=== PATIENT | female | born 1995 | race Caucasian/White ===

== ENCOUNTER 2023-10-11 17:17 | Emergency (ER) | payer OTHER, SELFPAY ==
[2023-10-11 17:35] VITALS: BP 120/66; PULSE 68; TEMP 36.7; O2SAT 98; BMI 23.7
--- NOTE | 2023-10-11 17:51 | ED_ITS ---
HPI HPI - General Adult General Chief complaint: Headache Stated complaint: migraine Time Seen by Provider: 10/11/23 17:19 Source: patient Mode of arrival: walk-in Limitations: no limitations History of Present Illness HPI narrative: Patient is a 28-year-old female who presents to the emergency department for 3- day history of migraine. She states she has had similar headaches in the past. She reports pain from the forehead over the face. She has some pain to the back of the head and feels the pain radiate down her back. No peripheral paresthesias although she states she feels shaky. She has had no fevers. No visual changes. She is not concerned for . No falls or injuries. She states the only symptom that is not typical of this headache from previous headaches is that she has been vomiting. She states she took a triptan for pain prior to arrival without improvement and these medications usually make her nauseous. The vomiting is unusual for her. She has a history of ulcerative colitis and has chronic diarrhea. No urinary symptoms, flank pain. Related Data Home Medications ?Medication ?Instructions ?Recorded ?Confirmed escitalopram oxalate 10 mg tablet 10 mg PO .qhs 10/11/23 10/11/23 levonorgestrel-ethinyl estradiol 1 tab PO QDAY 10/11/23 10/11/23 0.1 mg-20 mcg tablet (Falmina (28)) naratriptan 2.5 mg tablet See Rx Instructions PO .COMPLEX 10/11/23 10/11/23 pseudoephedrine HCl 30 mg tablet 30 mg PO Q6H 10/11/23 10/11/23 (Nasal Decongestant (pseudoephedrine)) Previous Rx's ?Medication ?Instructions ?Recorded ketorolac 10 mg tablet 10 mg PO TID PRN pain #10 tabs 10/11/23 methocarbamol 750 mg tablet 750 mg PO TID PRN pain #20 tabs 10/11/23 ondansetron 4 mg disintegrating 4 mg PO Q6H PRN nausea and 10/11/23 tablet vomiting #12 tabs Allergies Allergy/AdvReac Type Severity Reaction Status Date / Time No Known Drug Allergies Allergy Verified 10/11/23 17:35 Opioid HPI Opioid Management Most Recent Opioid Data: Last Pain Scale 7 10/11/23 18:16 Last MAR Pain Assessment 10/11/23 18:16 Review of Systems ROS Constitutional Denies: fever or chills Eyes Denies: change in vision Ears, nose, mouth, and throat Denies: throat pain or nasal congestion Cardiovascular Denies: chest pain Respiratory Denies: shortness of breath or cough Gastrointestinal Reports: nausea, vomiting and diarrhea Musculoskeletal Denies: back pain, neck pain, extremity pain or extremity swelling Integumentary/Breast Denies: rash Neurological Reports: headache; Denies: numbness in extremities or weakness in extremities Hematologic/Lymphatic Denies: easy bruising or easy bleeding Exam Narrative Exam Narrative: Gen.: Awake, alert, in no distress Head: Normocephalic, atraumatic ENT: Moist mucous membranes, No nuchal rigidity or meningismus, bilateral TMs are clear, pharynx is normal with no tonsillar edema. Airway widely open and patent. Respiratory: No respiratory distress, lungs clear bilaterally Cardio: Regular rate and rhythm Extremities: Moves extremities equally Psych: Normal mood and affect Neuro: No focal neuro deficit Skin: Warm, dry, intact Constitutional Vital Signs, click to edit/add: Last Vital Signs Temp 98.1 F 10/11/23 17:35 Pulse 68 10/11/23 17:35 Resp 12 10/11/23 17:35 BP 120/66 10/11/23 17:35 Pulse Ox 98 10/11/23 17:35 O2 Del Method Room Air 10/11/23 17:35 Course Vital Signs Vital signs: Vital Signs Temperature 98.1 F 10/11/23 17:35 Pulse Rate 68 10/11/23 17:35 Respiratory Rate 12 10/11/23 17:35 Blood Pressure 120/66 10/11/23 17:35 Pulse Oximetry 98 10/11/23 17:35 Oxygen Delivery Method Room Air 10/11/23 17:35 Temperature 98.1 F 10/11/23 17:35 Pulse Rate 68 10/11/23 17:35 Respiratory Rate 12 10/11/23 17:35 Blood Pressure 120/66 10/11/23 17:35 Pulse Oximetry 98 10/11/23 17:35 Oxygen Delivery Method Room Air 10/11/23 17:35 Medical Decision Making MDM Narrative Medical decision making narrative: Patient was medicated with IV fluids, Toradol, Reglan, Benadryl, Norflex. She had no episodes of emesis in the emergency department. Her vital signs are stable. She has a benign neuro exam and stable lab studies. She was noted to have mild hypokalemia and was treated with oral potassium in the ER. She is discharged home with prescriptions for Toradol, Zofran, Robaxin. Follow-up with PCP and return to the emergency department if symptoms change or worsen. Reevaluated by attending physician prior to discharge Medical Records Medical records reviewed: Yes I reviewed the patient's medical records Lab Data Lab results reviewed: Yes I reviewed the patient's lab results Labs: Lab Results 10/11/23 Range/Units 18:05 WBC 9.3 (4.0-11.0) 10^3/uL RBC 4.22 (4.20-5.40) 10^6/uL Hgb 12.5 (12.0-16.0) g/dL Hct 37.6 (36.0-48.0) % MCV 89.1 (81.0-99.0) fL MCH 29.6 (26.7-34.0) pg MCHC 33.2 (29.9-35.2) g/dL RDW 12.0 (11.0-15.0) % Plt Count 232 (150-450) 10^3/uL MPV 9.6 (9.5-13.5) fL Neut % (Auto) 70.1 (43.0-75.0) % Lymph % (Auto) 17.3 L (20.5-60.0) % [place] % (Auto) 9.5 (1.7-12.0) % Eos % (Auto) 2.0 (0.9-7.0) % Baso % (Auto) 0.9 (0.2-2.0) % Neut # (Auto) 6.5 (1.4-6.5) 10^3/uL Lymph # (Auto) 1.6 (1.2-3.8) 10^3/uL [place] # (Auto) 0.9 H (0.3-0.8) 10^3/uL Eos # (Auto) 0.2 (0.0-0.7) 10^3/uL Baso # (Auto) 0.1 (0.0-0.1) 10^3/uL Abs Immat Gran (auto) 0.02 (0.00-0.03) 10^3/uL Imm/Tot Granulo (auto) 0.2 (0.0-0.5) % Sodium 140 (136-145) mmol/L Potassium 3.3 L (3.5-5.1) mmol/L Chloride 104 (98-107) mmol/L Carbon Dioxide 26.5 (21.0-32.0) mmol/L Anion Gap 12.8 BUN 10.0 (7.0-18.0) mg/dL Creatinine 0.65 (0.55-1.02) mg/dL Est GFR ( Amer) >60 (>=60) Est GFR (Non-Af Amer) >60 (>=60) BUN/Creatinine Ratio 15.4 Glucose 98 (74-106) mg/dL Calcium 9.3 (8.5-10.1) mg/dL Discharge Plan Discharge Stand Alone Forms: Portal Instructions Chief Complaint: Headache Clinical Impression: Headache, Hypokalemia Patient Disposition: Home, Self-Care Time of Disposition Decision: 19:23 Condition: Good Prescriptions / Home Meds: New ketorolac 10 mg tablet 10 mg PO TID PRN (Reason: pain) Qty: 10 0RF methocarbamol 750 mg tablet 750 mg PO TID PRN (Reason: pain) Qty: 20 0RF ondansetron 4 mg tablet,disintegrating 4 mg PO Q6H PRN (Reason: nausea and vomiting) Qty: 12 0RF No Action levonorgestrel-ethinyl estrad [Falmina (28)] 0.1-20 mg-mcg tablet 1 tab PO QDAY escitalopram oxalate 10 mg tablet 10 mg PO .qhs naratriptan 2.5 mg tablet See Rx Instructions .ROUTE .COMPLEX Rx Instructions: take 1 tab at onset of headache; if no relief may repeat 1 tab after at least 4 hrs; max = 2 tabs/24 hrs pseudoephedrine HCl [Nasal Decongestant (pseudoeph)] 30 mg tablet 30 mg PO Q6H Print Language: Italian Instructions: Acute Headache (ED) Referrals: Physician,Non-Staff, MD [Primary Care Provider] - 1 week
[2023-10-11] MEDS: 0.9 % SODIUM CHLORIDE 1,000 ML 999 ML IV (18:11)
[2023-10-11] MEDS: DIPHENHYDRAMINE HCL 50 MG/ML (1ML) VIAL 25 MG IV (18:14)
[2023-10-11] MEDS: KETOROLAC TROMETHAMINE 30 MG/ML VIAL IVP (18:16)
[2023-10-11] MEDS: ORPHENADRINE 60 MG/ 2 ML VIAL IV (18:18)
[2023-10-11] MEDS: METOCLOPRAMIDE HCL 10 MG/2 ML VIAL IVP (18:18)
[2023-10-11 18:42] LABS: Basophils Absolute Auto 0.1 10^3/uL (0.0-0.1); Basophils Percent Auto 0.9 % (0.2-2.0); Eosinophils Absolute Auto 0.2 10^3/uL (0.0-0.7); Hematocrit 37.6 % (36.0-48.0); Hemoglobin 12.5 g/dL (12.0-16.0); Immature Granulocytes Abs Auto 0.02 10^3/uL (0.00-0.03); Immature Granulocytes Pct Auto 0.2 % (0.0-0.5); Lymphocytes Absolute Auto 1.6 10^3/uL (1.2-3.8); Lymphocytes Percent Auto 17.3 % (20.5-60.0); Mean Corpuscular HGB Conc 33.2 g/dL (29.9-35.2); Mean Corpuscular Hemoglobin 29.6 pg (26.7-34.0); Mean Corpuscular Volume 89.1 fL (81.0-99.0); Mean Platelet Volume 9.6 fL (9.5-13.5); Monocytes Absolute Auto 0.9 10^3/uL (0.3-0.8); Monocytes Percent Auto 9.5 % (1.7-12.0); Neutrophils Absolute Auto 6.5 10^3/uL (1.4-6.5); Neutrophils Percent Auto 70.1 % (43.0-75.0); Platelet Count 232 10^3/uL (150-450); Red Blood Count 4.22 10^6/uL (4.20-5.40); White Blood Count 9.3 10^3/uL (4.0-11.0)
[2023-10-11 18:51] LABS: Anion Gap 12.8; BUN Creatinine Ratio 15.4; Calcium 9.3 mg/dL (8.5-10.1); Carbon Dioxide 26.5 mmol/L (21.0-32.0); Chloride 104 mmol/L (98-107); Estimated GFR (African America >60 (>=60); Estimated GFR (Non-African Ame >60 (>=60); Glucose 98 mg/dL (74-106); Potassium 3.3 mmol/L (3.5-5.1); Sodium 140 mmol/L (136-145)
[2023-10-11] MEDS: POTASSIUM CHLORIDE 10 MEQ ER TABLET 40 MEQ PO (19:33)
[2023-10-11 19:41] VITALS: BP 105/73; PULSE 62; O2SAT 100
== END 2023-10-11 19:44 | disposition home or self-care (01) ==
PROVIDERS: Physician Assistant; Emergency Provider Emergency Medicine
DX: R51.9 Headache, unspecified (principal); E87.6 Hypokalemia
CPT/HCPCS: 36415; 80048; 85025; 96374; 96375; 99284

== ENCOUNTER 2025-03-16 10:11 | Outpatient (OUT) | payer OTHER, SELFPAY ==
--- OUTSIDE RECORDS SUMMARY | 2025-03-16 08:30 | XMS_ITS | Encounter Summary ---
Author Organization [facility] Address [address] [place] [address] Care Team Providers Care Funnel Setter Name Role Phone Addie Matute DO Primary Care Provider [phone] Encounter Details Date Type Department Care Team (Latest Contact Info) Description 03/16/2025 8:30 AM EDT Ancillary Procedure [facility] [address] [place] [address] Missed menses; Positive urine test ([facility]) Social History Tobacco Use Types Packs/Day Years Used Date Smoking Tobacco: Never Alcohol Use Standard Drinks/Week Comments Yes 6 (1 standard drink = 0.6 oz pur e alcohol) Estimated Date of Delivery Comme nts Yes 09/15/2025 Based on Ultraso und Sex and Gender Information Value Date Recorded Sex Assigned at Not on file Legal Sex Female 9:55 PM EDT Gender Identity Not on file Sexual Orientation Not on file documented as of this encounter Plan of Treatment Upcoming Encounters Date Type Department Care Team (Late st Contact Info) Description 04/10/2025 1:40 PM EST Routine [facility] [address] [place] [address] Pablo Hall DO [address] [place], [place] [id number] Pending Results Name Type Priority Associated Diagnoses Date /Time US OB transvaginal Imaging Routine Missed menses Positive urine test ([facility]) 03/16/2025 9:00 AM EDT documented as of this encounter Visit Diagnoses Diagnosis Missed menses Positive urine test ([facility]) documented in this encounter Care Teams Funnel Setter Relationship Specialty Start Date End Date Addie Matute DO [address] [place] [address] PCP - General Family Medicine 03/16/25 documented as of this encounter
--- OUTSIDE RECORDS SUMMARY | 2025-03-16 09:00 | XMS_ITS | Encounter Summary ---
Author Organization [facility] Address [address] [place] [address] Care Team Providers Care Notary Public Name Role Phone Addie Matute DO Primary Care Provider [phone] Reason for Visit * Reason Comments Amenorrhea Encounter Details Date Type Department Care Team (Late st Contact Info) Description 03/16/2025 9:00 AM EDT Initial [facility] [address] [place] [address] [place] [id number] GA: 13w6d Social History Tobacco Use Types Packs/Day Years [...] on file documented as of this encounter Last Filed Vital Signs Vital Sign Reading Time Taken Comments Blood Pressure 122/70 03/16/2025 9:57 AM EDT Pulse - - Temperature - - Respiratory Rate - - Oxygen Saturation - - Inhaled Oxygen Concentration - - Weight 76.3 kg (168 lb 1.9 oz) 03/16/2025 9:57 A M EDT Height - - Body Mass Index 22.33 05/02/2019 12:00 PM EST documented in this encounter Progress Notes * Danya Alex - 03/16/2025 9:00 AM EDT Reason for Appointment: Patient ID: Joslyn Witt is a 29 y.o. female who presents for Amenorrhea Patient presents today for a Nurse OB Intake appointment. Patient is 13w6d with a Estimated Date ofDelivery: 09/15/25 OB History Para Term AB Living 1 SAB IAB Ectopic Multiple Live Births # Outcome Date GA Lbr Jose/2nd Weight Sex Type Anes PTL Lv 1 Current Current Medications: currently has no medications in their medication list. Medical History: Active Ambulatory Problems Diagnosis Date Noted No Active Ambulatory Problems Resolved Ambulatory Problems Diagnosis Date Noted No Resolved Ambulatory Problems Past Medical History: Diagnosis Date Ulcerative colitis (HCC) Family History Problem Relation Name Age of Onset No Known Problems Brother 2 brothers Social History Tobacco Use Smoking status: Never Smokeless tobacco: Not on file Substance Use Topics Alcohol use: Yes Alcohol/week: 6.0 standard drinks of alcohol Types: 6 Standard drinks or equivalent per week Drug use: Not on file Past Surgical History: Procedure Laterality Date COLONOSCOPY No Known Allergies Vitals: Estimated body mass index is 22.33 kg/m?? as calculated from the following: Height as of 05/02/19: 6' 0.75 . Weight as of this encounter: 168 lb 1.9 oz. BP: 122/70 Patient's last menstrual period was 01/07/2025. Assessment/Plan Diagnoses and all orders for this visit: Missed menses - US OB transvaginal; Future - Type and screen; Future - ABO/Rh; Future - CBC and differential - Hemoglobin A1c - RPR - Rubella antibody, IgG - Hepatitis B surface antigen - Hepatitis C antibody - HIV-1 and HIV-2 antibodies - Urine culture - POCT urinalysis dipstick manually resulted - POCT , urine manually resulted Positive urine test ([facility]) - US OB transvaginal; Future , unspecified gestational age ([facility]) - Type and screen; Future - ABO/Rh; Future - CBC and differential - Hemoglobin A1c - RPR - Rubella antibody, IgG - Hepatitis B surface antigen - Hepatitis C antibody - HIV-1 and HIV-2 antibodies - Rapid drug screen, urine; Future Encounter for supervision of normal first in first trimester ([facility]) - Rapid drug screen, urine; Future Nurse Note: OB Intake: Patient presents today for first OB visit. Patients history has been reviewed in great detail including any potential risks. Patient signed consent forms and patient desires testing in both trimesters. Patient currently has no complaints and has been advised to drink 6-8 glasses of water a day, eatno raw or undercooked meat, and stay away from [facility]. Patient has also been advised to not change litter boxes and eat 6 small meals a day. Patient has been consulted regarding the do's and don'ts ofpregnancy. Patient was given labs and all questions and concerns were answered. Follow Up: Patient is to return in 4 weeks for routine OB appointment. Follow Up: Patient is to have labs drawn at directed and return to office for initial OB appointment with provider. Patient may call office as needed with any concerns or questions. Nurse Visit Completed by: Danya Alex documented in this encounter Plan of Treatment Upcoming Encounters Date Type Department Care Team (Late st Contact Info) Description 04/10/2025 1:40 PM EST Routine [facility] [address] [facility] [place] [address] [place], [address] [facility] [place] [address] Pending Results Name Type Priority Associated Diagnoses Date /Time OB transvaginal Imaging Routine Missed menses Positive urine test ([facility]) 03/16/2025 9:00 AM EDT Scheduled Orders Name Type Priority Associated Diagnoses Orde r Schedule OB transvaginal Imaging Routine Missed menses Positive urine test ([facility]) Expected: 03/06/2025, Expires: 06/06/2025 Type and screen Lab Routine Missed menses , unspecified gestational age ([facility]) Expected: 03/16/2025 (Approximate), Expires: 03/16/2026 ABO/Rh Lab Routine Missed menses , unspecified gestational age ([facility]) Expected: 03/16/2025 (Approximate), Expires: 03/16/2026 CBC and differential Lab Routine Missed menses , unspecified gestational age ([facility]) Ordered: 03/16/2025 Hemoglobin A1c Lab Routine Missed menses , unspecified gestational age ([facility]) Ordered: 03/16/2025 RPR Lab Routine Missed menses , unspecified gestational age ([facility]) Ordered: 03/16/2025 Rubella antibody, IgG Lab Routine Missed menses , unspecified gestational age ([facility]) Ordered: 03/16/2025 Hepatitis B surface antigen Lab Routine Missed menses , unspecified gestational age ([facility]) Ordered: 03/16/2025 Hepatitis C antibody Lab Routine Missed menses , unspecified gestational age ([facility]) Ordered: 03/16/2025 HIV-1 and HIV-2 antibodies Lab Routine Missed menses , unspecified gestational age ([facility]) Ordered: 03/16/2025 Urine culture Microbiology Routine Missed menses Ordered: 03/16/2025 Rapid drug screen, urine Lab Routine , unspecified gestational age ([facility]) Encounter for supervision of normal first in first trimester ([facility]) Expected: 03/16/2025 (Approximate), Expires: 03/16/2026 documented as of this encounter Procedures Procedure Name Priority Date/Time Associated Diagnosis Comments POCT , URINE Routine 03/16/2025 10:02 AM EDT Missed menses POCT URINALYSIS DIPSTICK Routine 03/16/2025 10:02 AM EDT Missed menses documented in this encounter Results * (ABNORMAL) POCT , urine manually resulted (03/16/2025 10:02 AM EDT) Preg Test, Ur Positive Negative Urine 03/16/2025 10:0 2 AM EDT us Pablo Isabel DO POINT OF CARE TEST ENTER/EDIT OR DERABLES Final Result * (ABNORMAL) POCT urinalysis dipstick manually resulted (03/16/2025 10:02 AM EDT) Color, UA Yellow Clarity, UA Clear Glucose, UA Negative Negative - 2000(110) ++++ mg/dL Bilirubin, UA Negative Negative - 4(70) +++ mg/dL Ketones, UA Negative Negative - 160(16) ++++ mg/dL Spec Grav, UA 1.000 1 - 1.03 Blood, UA Negative Negative - 50 Gary/mcL pH, UA 6.5 5 - 9 Protein, UA Negative Negative - 2000(20) ++++ mg/dL Urobilinogen, UA 2.0 0.2 - 12 mg/dL Leukocytes, UA Trace Negative - 500+++ Abundio/mcL Nitrite, UA Negative Negative - Positive Urine 03/16/2025 10:0 2 AM EDT Pablo Hall DO POINT OF CARE TEST ENTER/EDIT OR DERABLES Final Result documented in this encounter Visit Diagnoses Diagnosis Missed menses Positive urine test ([facility]) , unspecified gestational age ([facility]) Encounter for supervision of normal first in first trimester ([facility]) documented in this encounter Care Teams Notary Public Relationship Specialty Start Date End Date Addie Matute DO [address] [facility] [place] [phone] PCP - General Family Medicine 03/16/25 documented as of this encounter
--- OUTSIDE RECORDS SUMMARY | 2025-03-16 10:17 | XMS_ITS | Clinical Summary ---
Author Organization [facility] Address [address] [place] [address] Phone Care Team Providers Care Motor Equipment Sergeant Name Role Phone Unavailable Primary Care Provider Unavailabl e Social History Tobacco Use Types Packs/Day Years Used Date Smoking Tobacco: Never Assessed Comments Unknown Sex and Gender Information Value Date Recorded Sex Assigned at Not on file Legal Sex Female 6:01 PM EST Gender Identity Not on file Sexual Orientation Not on file Plan of Treatment Not on file
--- OUTSIDE RECORDS SUMMARY | 2025-03-16 10:17 | XMS_ITS | Clinical Summary ---
Author Organization [facility] Address [address] [place], [place] [id number] Care Team Providers Care Pipe Processor Name Role Phone Tae Wilkins APRN.[employer] Primary Care Provider Allergies No known active allergies Medications adalimumab 40 mg/0.4 mL subcutaneous pen kit (HUMIRA(CF) PEN) Inject 40 mg subcutaneously every 2 weeks. 08/13/19 19 Active folic acid 1 mg tablet Take 1 mg by mouth. Active methotrexate 2.5 mg tablet Take 5 mg by mouth once each week. 08/14/19 16 Active etonogestrel (NEXPLANON) subdermal implant 68 mg 68 mg by SUBDERMAL route. Active mupirocin (BACTROBAN) 2 % ointmentIndicati ons:History of MRSA infection,Pain in left axilla,Celluliti s of left axilla Apply 1 application to affected area twice daily. 30 g 02/07/20 19 Active sulfamethoxazole -trimethoprim (BACTRIM DS,SEPTRA DS) 800-160 mg per tabletIndication s:History of MRSA infection,Pain in left axilla,Celluliti s of left axilla Take 1 tablet by mouth twice daily. 10 tablet 06/02/19 20 Active escitalopram oxalate (LEXAPRO) 10 mg tabletIndication s:Anxiety with depression TAKE 1 TABLET BY MOUTH EVERY DAY 90 tablet 03/19/20 20 Active Active Problems Problem Noted Date Diagnosed Date Anxiety with depression 08/02/2019 Irritable bowel syndrome (IBS) 12/24/2017 Ulcerative colitis 09/02/2016 Inflammatory arthritis 01/14/2014 Benign neoplasm of skin of trunk, except scrotum 08/19/2011 Acne 12/25/2010 Seborrheic dermatitis 12/25/2010 Immunizations Immunization Administration Dates Next Due Haemophilus influenzae b-hep atitis B (Hib-HepB) vaccine (COMVAX) 09/03/1998,1997,1997 diphtheria tetanus pertussis (DTaP) vaccine, pediatric (INFANRIX) 08/29/2001,12/02/1998,02/27/1998,12/24,1997 diphtheria tetanus pertussis (DTaP) vaccine, unspecified formulation 08/29/2001,12/02/1998,02/27/1998,12/24,1997 human papillomavirus (HPV4) vaccine, quadrivalent (GARDASIL) 08/12/2010,01/29/2010,11/27/2009 influenza (IIV4) vaccine, ag e 6 mo - 64 yr, quadrivalent (AFLURIA, FLULAVAL, FLUZONE) 06/04/2017 influenza (IIV4) vaccine, ag e 6 mo - 64 yr, quadrivalent, PF (AFLURIA, FLUARIX, FLULAVAL, FLUZONE) 04/08/2015 influenza (ccIIV4) vaccine, age 6+ mo, quadrivalent, PF (FLUCELVAX) 03/08/2018 measles mumps rubella (MMR) vaccine (M-M-R II, PRIORIX) 08/29/2001,09/03/1998 meningococcal (MenACWY-CRM) vaccine, quadrivalent (MENVEO) 01/23/2016 meningococcal (MenACWY-D) va ccine, quadrivalent (MENACTRA) 01/23/2016,11/27/2009 novel influenza (T7W7-21) va ccine, live, nasal 04/04/2009 poliovirus (IPV) vaccine, in activated (IPOL) 08/29/2001,1997,1997 poliovirus (OPV) vaccine, tr ivalent, live, oral (ORIMUNE) 09/03/1998 tetanus diphtheria pertussis (Tdap) vaccine, age 7+ yr (ADACEL, BOOSTRIX) 02/06/2019,11/27/2009 varicella (NATALIYA) vaccine (VARIVAX) 09/14/2006,09/1998 Family History Medical History Relation Comments Blood Clots Mother Relation Status Comments Mother Social History Tobacco Use Types Packs/Day Years Used Date Smoking Tobacco: Never Smokeless Tobacco: Never Alcohol Use Standard Drinks/Week Comments Yes 0 (1 standard drink = 0.6 oz pur e alcohol) PHQ-2 Answer Date Recorded Score (Questions 1 & 2) 0 02/07/20 19 Area Deprivation Index Answer Date Arnaldo rded National Score (1-100), lower number is lower ri sk Not on file 05/08/2020 State Score (1-10), lower number is lower risk N ot on file 05/08/2020 Data from: https://www.neighborhoodatlas.[facility]/. Last address used for calculation Not on file 05/08/2020 Comments No Sex and Gender Information Value Date Recorded Sex Assigned at Not on file Legal Sex Female 6:17 PM EDT Gender Identity Not on file Sexual Orientation Not on file Last Filed Vital Signs Vital Sign Reading Time Taken Comments Blood Pressure 118/78 06/05/2019 1:03 PM EST Pulse 78 06/05/2019 1:03 PM EST Temperature 37.2 C (98.9 F) 05/05/2019 12:01 PM EST Respiratory Rate 17 02/06/2019 11:14 AM EDT Oxygen Saturation 98% 06/05/2019 1:03 PM EST Inhaled Oxygen Concentration - - Weight 70.3 kg (155 lb) 06/05/2019 1:03 PM EST Height 182.9 cm (6') 06/05/2019 1:03 PM EST Body Mass Index 21.02 06/05/2019 1:03 PM EST Plan of Treatment Health Maintenance Due Date Last Done Comments Anxiety Screening 08/28/2015 Depression Screening 08/28/2015 HIV Screening 08/28/2015 Hepatitis C Screening 08/28/2015 Cervical Cancer Screening 2018 Covid-19 Vaccine (2024-2 6 season) 2025 Influenza Vaccine (#1) 2025 8, 06/04/2017, 04/08/2015, Additional history exists DTaP,Tdap,Td Vaccine (8 - Td or Tdap) 02/06/2029 02/06/2019, 11/27/2009, 08/29/2001, Additional history exists Hepatitis B Vaccine Completed 09/03/1998, 1997, 1997 HPV Vaccine Completed 08/12/2010, 05/2009, 11/27/2009 Insurance BLUE CARD PPO OOS Care Teams Pipe Processor Relationship Specialty Start Date End Date Tae Wilkins, GOLF COURSE MANAGER.[employer] PCP - General Family Medicine 05/09/19
--- OUTSIDE RECORDS SUMMARY | 2025-03-16 10:18 | XMS_ITS | Encounter Summary ---
Author Organization [facility] Address [address] [place] [address] Care Team Providers Care Dialysis Biomed Technician Name Role Phone Unavailable Primary Care Provider Unavailabl e Encounter Details Date Type Department Care Team (Latest Contact Info) Description 03/15/2025 Travel Social History Tobacco Use Types Packs/Day Years Used Date Smoking Tobacco: Never Alcohol Use Standard Drinks/Week Comments Yes 6 (1 standard drink = 0.6 oz pur e alcohol) Comments Unknown Sex and Gender Information Value Date Recorded Sex Assigned at Not on file Legal Sex Female 9:55 PM EDT Gender Identity Not on file Sexual Orientation Not on file documented as of this encounter Plan of Treatment Upcoming Encounters Date Type Department Care Team (Late st Contact Info) Description 04/10/2025 1:40 PM EST Routine [facility] [address] [place] [id number] Pablo Hall DO [address] [facility] [place] [address] documented as of this encounter Visit Diagnoses Not on filedocumented in this encounter
--- OUTSIDE RECORDS SUMMARY | 2025-03-16 10:18 | XMS_ITS | Encounter Summary ---
Author Organization [facility] Address [address] [place] [address] Care Team Providers Care Forensic Psychologist Name Role Phone Addie Matute DO Primary Care Provider Encounter Details Date Type Department Care Team (Late st Contact Info) Description 03/16/20[address] [place] [address] Pablo Hall DO [address], [place] [address] Social History Tobacco Use Types Packs/Day Years [...] 04/10/2025 1:40 PM EST Routine [facility] [place] [address] Pablo Hall DO [address], [facility] documented as of this encounter Visit Diagnoses Not on filedocumented in this encounter Care Teams Forensic Psychologist Relationship Specialty Start Date End Date Addie Matute DO [address] [place] [address] PCP - General Family Medicine 03/16/25 documented as of this encounter
--- OUTSIDE RECORDS SUMMARY | 2025-03-16 10:18 | XMS_ITS | CCD ---
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 Known Allergies Current Outpatient Medications Medication Sig - cephALEXin (KEFLEX) 500 mg capsule Take 2 capsules by mouth twice daily for 5 days. - sulfamethoxazole-trim ethoprim (BACTRIM DS,SEPTRA DS) 800-160 mg per tablet Take 1 tablet by mouth twice daily. - escitalopram oxalate (LEXAPRO) 10 mg tablet TAKE 1 TABLET BY MOUTH EVERY DAY - etonogestrel (NEXPLANON) subdermal implant 68 mg 68 mg by SUBDERMAL route. - mupirocin (BACTROBAN) 2 % ointment Apply 1 application to affected area twice daily. - adalimumab 40 mg/0.4 mL subcutaneous pen kit (HUMIRA(CF) PEN) Inject 40 mg subcutaneously every 2 weeks. - folic acid 1 mg tablet Take 1 mg by mouth. - methotrexate 2.5 mg tablet Take 5 mg by mouth once each week. No current facility-administered medications for this visit. Review of Systems Review of Systems Constitutional: Positive for fatigue. Negative for chills, diaphoresis and fever. HENT: Negative for congestion, sinus pressure, sinus pain, sore throat and trouble swallowing. Respiratory: Negative for cough, chest tightness, shortness of breath and wheezing. Cardiovascular: Negative for chest pain and palpitations. Gastrointestinal: Negative for abdominal pain, diarrhea, nausea and vomiting. Genitourinary: Negative for flank pain. Musculoskeletal: Negative for arthralgias and myalgias. Neurological: Negative for dizziness, tremors, seizures, syncope, facial asymmetry, speech difficulty, weakness, light-headedness, numbness and headaches. Psychiatric/Behaviora l: Negative for confusion and suicidal ideas. The patient is nervous/anxious. Physical Exam BP 118/78 Pulse 78 Ht 6' 0 (1.83m) Wt 155 lb (70.3kg) SpO2 98% BMI 21.02 kg/(m2). Physical Exam Constitutional: Appearance: Normal appearance. She is well-developed. Cardiovascular: Rate and Rhythm: Normal rate and regular rhythm. Pulses: Normal pulses. Heart sounds: Normal heart sounds. Pulmonary: Effort: Pulmonary effort is normal. Breath sounds: Normal breath sounds. Skin: General: Skin is warm and dry. Capillary Refill: Capillary refill takes less than 2 seconds. Neurological: Mental Status: She is alert and oriented to person, place, and time. Psychiatric: Attention and Perception: Attention and perception normal. Speech: Speech normal. Behavior: Behavior normal. Behavior is cooperative. Thought Content: Thought content normal. Cognition and Memory: Cognition and memory normal. Judgment: Judgment normal. ASSESSMENT/PLAN: 1. Anxiety with depression - ICD9: 300.4, ICD10: F41.8 - We will increase her Lexapro from 10mg to 15mg daily - Pt also interested in seeing psychiatry - Will contact me in two weeks via [employer] and update on how she is tolerating medications. At this time we may switch medications or adjust dosaging - CONSULT TO PSYCHIATRY Kristy Hood APRN.CNP No follow-ups on file. Discussed above plan with patient and/or caregiver. Patient and/or caregiver agreeable with above plan. Signed on June 05, 2019 1:09 PM Kristy Hood APRN.CNP, CNP 06/05/2019 2:50 PM Signed Addended by: KRISTY HOOD CNP on: 06/05/2019 02:50 PM Modules accepted: Orders Referring Provider: KRISTY HOOD (BUNKER WORKER.[facility]) [[id number]] Allergies As of Date: 06/05/2019 (No Known Allergies) Date Reviewed: 05/05/2019 Reviewed by: Moon Bonilla - Fully Assessed Reason for Visit: One Mouth Follow Up Anxiety [Other] Visit Diagnosis:Anxiety with depression [F41.8] Order(s):CONSULT TO PSYCHIATRY [9067] Order #: [id number]: 1 FUTURE Prescriptions as of 06/05/2019 Sig: CEPHALEXIN 500 MG CAPSULE Take 2 capsules by mouth twic* SULFAMETHOXAZOLE 800 MG-TRIME* Take 1 tablet by mouth twice * ETONOGESTREL 68 MG SUBDERMAL * 68 mg by SUBDERMAL route. MUPIROCIN 2 % TOPICAL OINTMENT Apply 1 application to affect* ADALIMUMAB 40 MG/0.4 ML SUBCU* Inject 40 mg subcutaneously e* FOLIC ACID 1 MG TABLET Take 1 mg by mouth. METHOTREXATE SODIUM 2.5 MG TA* Take 5 mg by mouth once each * Problem List As Of Date: 06/05/2019 (None) Prescriptions ordered this encounter Disp Refills Start End ESCITALOPRAM 10 MG TABLET 45 t* 1 06/05/2019 06/05/2019 Route: ORAL Sig: Take 1.5 tablets by mouth once daily. Medications Discontinued During This Encounter escitalopram oxalate (LEXAPRO) 10 mg* 30 t* 1 05/29/2019 06/05/2019 Sig: TAKE 1 TABLET BY MOUTH EVERY DAY Disc: Reason for discontinue is not on file. escitalopram oxalate (LEXAPRO) 10 mg* 45 t* 1 06/05/2019 06/05/2019 Route: ORAL Sig: Take 1.5 tablets by mouth once daily. Disc: Reason for discontinue is not on file. Questionnaire: KIA-7 ANXIETY SCALE Feeling nervous, anxious, or on edge -> 2 Over half the days Not being able to stop or control worrying -> 3 Nearly every day Worrying too much about different things -> 1 Several days Trouble relaxing -> 1 Several days Being so restless that it's hard to sit still -> 0 Not at all sure Being easily annoyed or irritable -> 3 Nearly every day Feeling afraid as if something awful might happen -> 0 Not at all sure KIA-7 Anxiety Score -> 10 Encounter Status:Closed by KRISTY HOOD CNP on 06/05/19 [facility] PROGRESSon 06-05-2019 PROGRESS HNO ID: [id number] Author: Kristy Munoz (Philanthropy Officer.Anish) ANISH Hood Service: ? Author Type: Nurse Practitioner Type: Progress Notes Filed: 06/05/2019 2:04 PM Note Text: Kristy Hood APRN.CNP [facility] [place] [address] Visit Date: June 05, 2019 Ms.Kianna Zaki Alcala Date of : 1995 MRN/E #: [id number] History of Present Illness Yari Alcala is a 23 year old female. Patient presents to the clinic today for a follow up visit. Pt was started on Lexapro 10mg one month ago. She states she is taking the medication daily, tolerating well with no side effects. She states that she has not felt much change since starting the medication. She still feels depressed/anxious daily. She is not sure why she feels this way or what causes. She is trying to cleanse and not drink alcohol in May . 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 PAST MEDICAL HISTORY Diagnosis Date - Colitis - Ulcerative colitis (HCC) Social History Tobacco Use - Smoking status: Never Smoker - Smokeless tobacco: Never Used Substance Use Topics - Alcohol use: Yes - Drug use: No ALLERGIES No Known Allergies Current Outpatient Medications Medication Sig - cephALEXin (KEFLEX) 500 mg capsule Take 2 capsules by mouth twice daily for 5 days. - sulfamethoxazole-trim ethoprim (BACTRIM DS,SEPTRA DS) 800-160 mg per tablet Take 1 tablet by mouth twice daily. - escitalopram oxalate (LEXAPRO) 10 mg tablet TAKE 1 TABLET BY MOUTH EVERY DAY - etonogestrel (NEXPLANON) subdermal implant 68 mg 68 mg by SUBDERMAL route. - mupirocin (BACTROBAN) 2 % ointment Apply 1 application to affected area twice daily. - adalimumab 40 mg/0.4 mL subcutaneous pen kit (HUMIRA(CF) PEN) Inject 40 mg subcutaneously every 2 weeks. - folic acid 1 mg tablet Take 1 mg by mouth. - methotrexate 2.5 mg tablet Take 5 mg by mouth once each week. No current facility-administered medications for this visit. Review of Systems Review of Systems Constitutional: Positive for fatigue. Negative for chills, diaphoresis and fever. HENT: Negative for congestion, sinus pressure, sinus pain, sore throat and trouble swallowing. Respiratory: Negative for cough, chest tightness, shortness of breath and wheezing. Cardiovascular: Negative for chest pain and palpitations. Gastrointestinal: Negative for abdominal pain, diarrhea, nausea and vomiting. Genitourinary: Negative for flank pain. Musculoskeletal: Negative for arthralgias and myalgias. Neurological: Negative for dizziness, tremors, seizures, syncope, facial asymmetry, speech difficulty, weakness, light-headedness, numbness and headaches. Psychiatric/Behaviora l: Negative for confusion and suicidal ideas. The patient is nervous/anxious. Physical Exam BP 118/78 Pulse 78 Ht 6' 0 (1.83m) Wt 155 lb (70.3kg) SpO2 98% BMI 21.02 kg/(m2). Physical Exam Constitutional: Appearance: Normal appearance. She is well-developed. Cardiovascular: Rate and Rhythm: Normal rate and regular rhythm. Pulses: Normal pulses. Heart sounds: Normal heart sounds. Pulmonary: Effort: Pulmonary effort is normal. Breath sounds: Normal breath sounds. Skin: General: Skin is warm and dry. Capillary Refill: Capillary refill takes less than 2 seconds. Neurological: Mental Status: She is alert and oriented to person, place, and time. Psychiatric: Attention and Perception: Attention and perception normal. Speech: Speech normal. Behavior: Behavior normal. Behavior is cooperative. Thought Content: Thought content normal. Cognition and Memory: Cognition and memory normal. Judgment: Judgment normal. ASSESSMENT/PLAN: 1. Anxiety with depression - ICD9: 300.4, ICD10: F41.8 - We will increase her Lexapro from 10mg to 15mg daily - Pt also interested in seeing psychiatry - Will contact me in two weeks via mychart and update on how she is tolerating medications. At this time we may switch medications or adjust dosaging - CONSULT TO PSYCHIATRY Kristy Hood APRN.CNP No follow-ups on file. Discussed above plan with patient and/or caregiver. Patient and/or caregiver agreeable with above plan. Signed on June 05, 2019 1:09 PM Normal [facility] OBSOLETEon 05-27-2019 OBSOLETE Refill ([facility]) YARI ALCALA ([id number]) 1995 F Date Time Provider Department 05/27/19 KRISTY HOOD (BRUCE) [facility] During your visit today, we recorded the following information about you: Moon Bonilla CMA 05/29/2019 8:45 AM Signed Pharmacy faxed requesting the following refill. Patient's last appointment: with Kristy Hood APRN.CNP, ASSOCIATE SOFTWARE APPLICATION ENGINEER was 05/05/2019 and has a follow up on 06/05/2019. Pending Prescriptions Disp Refills ESCITALOPRAM 10 MG TABLET 30 tablet 1 Sig: TAKE 1 TABLET BY MOUTH EVERY DAY ANTHONY: No Patient Phone numbers: [phone] (home) Request is for script(s) to be escript to pharmacy. Moon Bonilla CMA Allergies As of Date: 05/27/2019 (No Known Allergies) Date Reviewed: 05/05/2019 Reviewed by: Moon Bonilla - Fully Assessed Reason for Visit: Refill Request [94] Visit Diagnosis:Anxiety with depression [F41.8] Order(s):escitalopram oxalate (LEXAPRO) 10 mg tabletTAKE 1 TABLET BY MOUTH EVERY DAYDisp: 30 tabletRfl: 1 Prescriptions as of 05/27/2019 Sig: ESCITALOPRAM 10 MG TABLET TAKE 1 TABLET BY MOUTH EVERY * ETONOGESTREL 68 MG SUBDERMAL * 68 mg by SUBDERMAL route. SULFAMETHOXAZOLE 800 MG-TRIME* Take 1 tablet by mouth twice * MUPIROCIN 2 % TOPICAL OINTMENT Apply 1 application to affect* ADALIMUMAB 40 MG/0.4 ML SUBCU* Inject 40 mg subcutaneously e* FOLIC ACID 1 MG TABLET Take 1 mg by mouth. METHOTREXATE SODIUM 2.5 MG TA* Take 5 mg by mouth once each * Problem List As Of Date: 05/27/2019 (None) Prescriptions ordered this encounter Disp Refills Start End ESCITALOPRAM 10 MG TABLET 30 t* 1 05/29/2019 Sig: TAKE 1 TABLET BY MOUTH EVERY DAY Medications Discontinued During This Encounter escitalopram oxalate (LEXAPRO) 10 mg* 30 t* 1 05/05/2019 05/29/2019 Route: ORAL Sig: Take 1 tablet by mouth once daily. Disc: Reason for discontinue is not on file. Encounter Status:Closed by KRISTY HOOD CNP on 05/29/19 [facility] 05-05-2019 CNOV Office Visit ([facility]) YARI ALCALA ([id number]) 1995 F Date Time Provider Department 05/05/19 12:00 PM KRISTY HOOD (BRUCE) [facility] During your visit today, we recorded the following information about you: Temperature Pulse Blood pressure Weight 98.9 degrees 78/minute 118/78 70.3 kg Height 1.829 m Kristy Hood APRN.CNP, CNP 05/09/2019 8:46 AM Signed Kristy Hood APRN.CNP [facility] [place] [address] Visit Date: May 05, 2019 Ms.Kianna Zaki Alcala Date of : 1995 MRN/E #: [id number] History of Present Illness Yari Alcala is a 23 year old female. Patient presents to the clinic today for an acute visit and follow up. C/O 5 days with headache, sore throat, nausea, body aches, sinus congestion. Denies fevers. Endorses chills, night sweats. Pt states symptoms are improving, 75% back to normal. Went to urgent care, influenza, mono, strep were negative. Given Augmentin, hasn't filled yet. Pt has been taking Tylenol and sudafed with some relief. Pt has noticed an increase in depression over the last several months. Overall she just feels sad . She described having these off days where symptoms are worse most days of the week. Previously she would have these days maybe once or twice a month. She attributes these days to more stress with work, school and figuring out her future. She has not tried medication for these symptoms in the past. PAST MEDICAL HISTORY Diagnosis Date - Colitis - Ulcerative colitis (HCC) Social History Tobacco Use - Smoking status: Never Smoker - Smokeless tobacco: Never Used Substance Use Topics - Alcohol use: Yes - Drug use: No ALLERGIES No Known Allergies Current Outpatient Medications Medication Sig - etonogestrel (NEXPLANON) subdermal implant 68 mg 68 mg by SUBDERMAL route. - mupirocin (BACTROBAN) 2 % ointment Apply 1 application to affected area twice daily. - adalimumab 40 mg/0.4 mL subcutaneous pen kit (HUMIRA(CF) PEN) Inject 40 mg subcutaneously every 2 weeks. - folic acid 1 mg tablet Take 1 mg by mouth. - methotrexate 2.5 mg tablet Take 5 mg by mouth once each week. - sulfamethoxazole-trim ethoprim (BACTRIM DS,SEPTRA DS) 800-160 mg per tablet Take 1 tablet by mouth twice daily. No current facility-administered medications for this visit. Review of Systems Review of Systems Constitutional: Negative for appetite change, chills, diaphoresis, fatigue and fever. HENT: Positive for congestion, postnasal drip and sore throat. Negative for ear pain, rhinorrhea, sinus pressure, sinus pain, sneezing and trouble swallowing. Eyes: Negative for redness. Respiratory: Positive for cough. Negative for chest tightness, shortness of breath and wheezing. Cardiovascular: Negative for chest pain. Gastrointestinal: Negative for abdominal pain, nausea and vomiting. Musculoskeletal: Negative for arthralgias and myalgias. Allergic/Immunologic: Negative for environmental allergies. Neurological: Negative for dizziness, weakness, light-headedness and headaches. Psychiatric/Behaviora l: Negative for confusion, sleep disturbance and suicidal ideas. The patient is not nervous/anxious. Physical Exam BP 118/78 Pulse 78 Temp 98.9 Ht 6' 0 (1.83m) Wt 155 lb (70.3kg) SpO2 98% BMI 21.02 kg/(m2). Physical Exam Constitutional: Appearance: Normal appearance. She is well-developed. HENT: Right Ear: Hearing, tympanic membrane, ear canal and external ear normal. No middle ear effusion. Left Ear: Hearing, tympanic membrane, ear canal and external ear normal. No middle ear effusion. Nose: Mucosal edema and rhinorrhea present. Right Sinus: No maxillary sinus tenderness or frontal sinus tenderness. Left Sinus: No maxillary sinus tenderness or frontal sinus tenderness. Mouth/Throat: Lips: [place]. Mouth: Mucous membranes are moist. Pharynx: Oropharynx is clear. Uvula midline. Eyes: General: Lids are normal. Extraocular Movements: Extraocular movements intact. Conjunctiva/sclera: Conjunctivae normal. Neck: Musculoskeletal: Full passive range of motion without pain, normal range of motion and neck supple. Trachea: Trachea and phonation normal. Cardiovascular: Rate and Rhythm: Normal rate and regular rhythm. Pulses: Normal pulses. Heart sounds: Normal heart sounds. Pulmonary: Effort: Pulmonary effort is normal. Breath sounds: Normal breath sounds and air entry. Skin: General: Skin is warm and dry. Neurological: Mental Status: She is alert and oriented to person, place, and time. Psychiatric: Attention and Perception: Attention and perception normal. Mood and Affect: Mood and affect normal. Speech: Speech normal. Behavior: Behavior normal. Thought Content: Thought content normal. Judgment: Judgment normal. ASSESSMENT/PLAN: 1. Anxiety with depression - ICD9: 300.4, ICD10: F41.8 (primary diagnosis) - Pt educated On Lexapro, to begin taking 5mg daily and advance as tolerated - Provided educational sheet on medication - Educated to take daily, we will follow up in one month - Call office with medication side effects, questions - Pt agreeable to plan - ESCITALOPRAM 10 MG TABLET 2. Sinus congestion - ICD9: 478.19, ICD10: R09.81 - With improving symptoms, educated to hold off on filling Augmentin, to fill if symptoms worsen - Begin taking OTC flonase and allergy pill - Pt agreeable to plan 3. Post-nasal drip - ICD9: 784.91, ICD10: R09.82 - See above Kristy Hood, BUNKER WORKER.ASSOCIATE SOFTWARE APPLICATION ENGINEER No follow-ups on file. Discussed above plan with patient and/or caregiver. Patient and/or caregiver agreeable with above plan. Signed on May 05, 2019 12:19 PM Referring Provider: SELF [[id number]] Allergies As of Date: 05/05/2019 (No Known Allergies) Date Reviewed: 05/05/2019 Reviewed by: Moon Bonilla - Fully Assessed Reason for Visit: Follow Up Depression/ Anxiety [Other] Follow Up urgent care [Other] Cmt: Flu like Sx Reason For Visit History Recorded Primary Visit Diagnosis:Anxiety with depression [F41.8] Other Visit Diagnoses:Sinus congestion [R09.81] Post-nasal drip [R09.82] Order(s):escitalopram oxalate (LEXAPRO) 10 mg tabletTake 1 tablet by mouth once daily.Disp: 30 tabletRfl: 1 Prescriptions as of 05/05/2019 Sig: ETONOGESTREL 68 MG SUBDERMAL * 68 mg by SUBDERMAL route. MUPIROCIN 2 % TOPICAL OINTMENT Apply 1 application to affect* ADALIMUMAB 40 MG/0.4 ML SUBCU* Inject 40 mg subcutaneously e* FOLIC ACID 1 MG TABLET Take 1 mg by mouth. METHOTREXATE SODIUM 2.5 MG TA* Take 5 mg by mouth once each * ESCITALOPRAM 10 MG TABLET Take 1 tablet by mouth once d* SULFAMETHOXAZOLE 800 MG-TRIME* Take 1 tablet by mouth twice * Problem List As Of Date: 05/05/2019 (None) Prescriptions ordered this encounter Disp Refills Start End ESCITALOPRAM 10 MG TABLET 30 t* 1 05/05/2019 Route: ORAL Sig: Take 1 tablet by mouth once daily. Questionnaire: KIA-7 ANXIETY SCALE Feeling nervous, anxious, or on edge -> 1 Several days Not being able to stop or control worrying -> 2 Over half the days Worrying too much about different things -> 2 Over half the days Trouble relaxing -> 1 Several days Being so restless that it's hard to sit still -> 0 Not at all sure Being easily annoyed or irritable -> 3 Nearly every day Feeling afraid as if something awful might happen -> 0 Not at all sure If you checked off any problems, how difficult have these problems made it for you to do your work, take care of things at home, or get along with other people? -> Somewhat difficult Encounter Status:Closed by KRISTY HOOD CNP on 05/09/19 Normal [facility] PROGRESSon 05-05-2019 PROGRESS HNO ID: [id number] Author: Kristy Munoz (Philanthropy Officer.Anish) ANISH Hood Service: ? Author Type: Nurse Practitioner Type: Progress Notes Filed: 05/09/2019 8:46 AM Note Text: Kristy Hood APRN.CNP [address] [place] [address] Visit Date: May 05, 2019 Ms.Kianna Zaki Alcala Date of : 1995 MRN/E #: [id number] History of Present Illness Yari Alcala is a 23 year old female. Patient presents to the clinic today for an acute visit and follow up. C/O 5 days with headache, sore throat, nausea, body aches, sinus congestion. Denies fevers. Endorses chills, night sweats. Pt states symptoms are improving, 75% back to normal. Went to urgent care, influenza, mono, strep were negative. Given Augmentin, hasn't filled yet. Pt has been taking Tylenol and sudafed with some relief. Pt has noticed an increase in depression over the last several months. Overall she just feels sad . She described having these off days where symptoms are worse most days of the week. Previously she would have these days maybe once or twice a month. She attributes these days to more stress with work, school and figuring out her future. She has not tried medication for these symptoms in the past. PAST MEDICAL HISTORY Diagnosis Date - Colitis - Ulcerative colitis (HCC) Social History Tobacco Use - Smoking status: Never Smoker - Smokeless tobacco: Never Used Substance Use Topics - Alcohol use: Yes - Drug use: No ALLERGIES No Known Allergies Current Outpatient Medications Medication Sig - etonogestrel (NEXPLANON) subdermal implant 68 mg 68 mg by SUBDERMAL route. - mupirocin (BACTROBAN) 2 % ointment Apply 1 application to affected area twice daily. - adalimumab 40 mg/0.4 mL subcutaneous pen kit (HUMIRA(CF) PEN) Inject 40 mg subcutaneously every 2 weeks. - folic acid 1 mg tablet Take 1 mg by mouth. - methotrexate 2.5 mg tablet Take 5 mg by mouth once each week. - sulfamethoxazole-trim ethoprim (BACTRIM DS,SEPTRA DS) 800-160 mg per tablet Take 1 tablet by mouth twice daily. No current facility-administered medications for this visit. Review of Systems Review of Systems Constitutional: Negative for appetite change, chills, diaphoresis, fatigue and fever. HENT: Positive for congestion, postnasal drip and sore throat. Negative for ear pain, rhinorrhea, sinus pressure, sinus pain, sneezing and trouble swallowing. Eyes: Negative for redness. Respiratory: Positive for cough. Negative for chest tightness, shortness of breath and wheezing. Cardiovascular: Negative for chest pain. Gastrointestinal: Negative for abdominal pain, nausea and vomiting. Musculoskeletal: Negative for arthralgias and myalgias. Allergic/Immunologic: Negative for environmental allergies. Neurological: Negative for dizziness, weakness, light-headedness and headaches. Psychiatric/Behaviora l: Negative for confusion, sleep disturbance and suicidal ideas. The patient is not nervous/anxious. Physical Exam BP 118/78 Pulse 78 Temp 98.9 Ht 6' 0 (1.83m) Wt 155 lb (70.3kg) SpO2 98% BMI 21.02 kg/(m2). Physical Exam Constitutional: Appearance: Normal appearance. She is well-developed. HENT: Right Ear: Hearing, tympanic membrane, ear canal and external ear normal. No middle ear effusion. Left Ear: Hearing, tympanic membrane, ear canal and external ear normal. No middle ear effusion. Nose: Mucosal edema and rhinorrhea present. Right Sinus: No maxillary sinus tenderness or frontal sinus tenderness. Left Sinus: No maxillary sinus tenderness or frontal sinus tenderness. Mouth/Throat: Lips: [place]. Mouth: Mucous membranes are moist. Pharynx: Oropharynx is clear. Uvula midline. Eyes: General: Lids are normal. Extraocular Movements: Extraocular movements intact. Conjunctiva/sclera: Conjunctivae normal. Neck: Musculoskeletal: Full passive range of motion without pain, normal range of motion and neck supple. Trachea: Trachea and phonation normal. Cardiovascular: Rate and Rhythm: Normal rate and regular rhythm. Pulses: Normal pulses. Heart sounds: Normal heart sounds. Pulmonary: Effort: Pulmonary effort is normal. Breath sounds: Normal breath sounds and air entry. Skin: General: Skin is warm and dry. Neurological: Mental Status: She is alert and oriented to person, place, and time. Psychiatric: Attention and Perception: Attention and perception normal. Mood and Affect: Mood and affect normal. Speech: Speech normal. Behavior: Behavior normal. Thought Content: Thought content normal. Judgment: Judgment normal. ASSESSMENT/PLAN: 1. Anxiety with depression - ICD9: 300.4, ICD10: F41.8 (primary diagnosis) - Pt educated On Lexapro, to begin taking 5mg daily and advance as tolerated - Provided educational sheet on medication - Educated to take daily, we will follow up in one month - Call office with medication side effects, questions - Pt agreeable to plan - ESCITALOPRAM 10 MG TABLET 2. Sinus congestion - ICD9: 478.19, ICD10: R09.81 - With improving symptoms, educated to hold off on filling Augmentin, to fill if symptoms worsen - Begin taking OTC flonase and allergy pill - Pt agreeable to plan 3. Post-nasal drip - ICD9: 784.91, ICD10: R09.82 - See above Kristy Hood APRN.ASSOCIATE SOFTWARE APPLICATION ENGINEER No follow-ups on file. Discussed above plan with patient and/or caregiver. Patient and/or caregiver agreeable with above plan. Signed on May 05, 2019 12:19 PM Normal [facility] Progress Noteon 03-15-2019 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 female. The patient's reason for visit is ulcerative colitis. She is unaccompanied. Ulcerative Colitis I had the pleasure of seeing Yari Alcala today in Pediatric Gastroenterology and Nutrition clinic at [facility] for follow up for UC. Diagnosed at age 14. Previously developed antibodies to Remicade. Switched over the Humira. Levels of Humira 14, therapuetic. Recent endoscopy - normal A. Squamous esophageal mucosa - No diagnostic abnormality. B. Mild chronic gastritis. C. Duodenal mucosa - No diagnostic abnormality. D. Small bowel mucosa - No diagnostic abnormality. E. Colonic mucosa - No diagnostic abnormality. F. Colonic mucosa - No diagnostic abnormality. G. Colonic mucosa - No diagnostic abnormality. H. Colonic mucosa - No pathologic diagnostic abnormality, see microscopic description. I. Colonic mucosa - No diagnostic Was supposed to start Rowasa enemas for symptoms control of urgency and tenesmus, she never did. Continues to have abdominal pain, urgency, passing a lot of mucous, some blood. Continues to have issues with constipation as well. Not taking Linzess. Thought previously it gave her diarrhea, would like to try again to see if things improve. Feels fatigue for almost 2 weeks after Humira. Did not feel like she was as fatigued while on Remicade. Taking MTX and FA intermittently. Discussed possible switch to Entyvio. For now will try to make sure she takes MTX weekly and try Linzess again and see how she feels. Normal urine output. Also has IBS. Also on Valtrex for genital herpes, which is now resolved. Previous visits Yari has stated that Mesalamine enemas help but make her stools are looser and the pain improves with defecation. Previously checked Remicade level for concern for antibodies, her levels at 4 weeks were > 32. In the past had systemic side effects with cortenema - increased appetite and some cushingoid features per her mother and Yari. In the past tried a FODMAP and thought it was really hard with her lifestyle - although in the past reported that she thought dairy and possibly gluten were triggers, but then felt it didn't help her symptoms. No longer taking Levsin because it didn't seem to help. Got the flu shot this year. Endoscopy 05/19/17: A. Squamous esophageal mucosa no diagnostic abnormality B. Gastric mucosa no diagnostic abnormality C. Duodenal mucosa no diagnostic abnormality D. Small bowel mucosa no diagnostic abnormality E. Colonic mucosa no diagnostic abnormality F. Colonic mucosa no diagnostic abnormality G. Colonic mucosa no diagnostic abnormality Inflammatory Bowel Disease Symptoms include abdominal pain, diarrhea and joint pain. Her disease is in a chronic state. The disease extends to the left colon and right colon. The course is recurrent. Yari's symptoms are described as moderate. She has 3 stools per day. Her stool is soft and brown. There is no blood in her stool. Patient receives nutrition orally. Her diet includes a well balanced diet. Medications include Remicade, Methotrexate, Folic acid. Previously run lab tests include: CBC, CMP, CRP and ESR - unremarakbe. I have reviewed past medical, surgical, social and family history, medications and allergies as documented in the patient's electronic medical record. GI ROS Constitutional: Negative for weight loss, recurrent fevers and malaise/fatigue. HENT: Negative for ear infections, trouble swallowing and sore throat. Eyes: Negative for wears glasses. Respiratory: Negative for asthma. Cardiovascular: Negative for heart problems. Endocrine: Negative for poor growth. Breasts: Negative for breast discharge and breast mass. Gastrointestinal: Positive for abdominal pain. Negative for diarrhea, blood in stool and trouble swallowing. Genitourinary: Negative for dysuria, frequent urination and kidney problems. Neurological: Negative for headaches, attention deficit and muscle weakness. Musculoskeletal: Positive for joint pain and back pain. Skin: Negative for rash, acne and skin problem. Allergy/Immune: Negative for allergies and frequent infections. Hematology: Negative for no anemia and no adenopathy. Objective: Physical Exam Constitutional: She appears well-developed and well-nourished. She is active. HENT: Mouth/Throat: Her mucous membranes are moist. Her oropharynx is clear. Eyes: Her conjunctivae and EOM are normal. Neck: Her neck is supple. Theres is no adenopathy. Cardiovascular: No murmur heard. Pulmonary/Chest: Effort normal and breath sounds normal. Abdominal: Her abdomen is soft. She exhibits no distension. Bowel sounds are normal. There is no tenderness. There is no CVA tenderness present.There is no hepatosplenomegaly. Musculoskeletal: Normal range of motion. Neurological: She is alert. She has normal strength. Skin: Skin is warm and dry. Capillary refill takes less than 3 seconds. No rash noted. No pallor. Vitals reviewed. Lab Results Component Value Date NA 139 10/12/2018 K 4.0 10/12/2018 CL 105 10/12/2018 CO2 24.9 10/12/2018 BUN 10 10/12/2018 GLU 81 10/12/2018 BILITOT 1.0 10/12/2018 AST 17 10/12/2018 ALT 12 10/12/2018 ALKPHOS 40 10/12/2018 CALCIUM 9.4 10/12/2018 PROT 7.3 10/12/2018 ALB 4.6 10/12/2018 CREATININE 0.80 10/12/2018 WBC Date Value Ref Range Status 10/12/2018 6.9 4.5 - 11.0 10E9/L Final RBC Date Value Ref Range Status 10/12/2018 4.50 4.00 - 4.90 10E12/L Final Hemoglobin Date Value Ref Range Status 10/12/2018 13.6 12.0 - 15.0 g/dl Final Hematocrit Date Value Ref Range Status 10/12/2018 39.4 36.0 - 44.0 % Final MCV Date Value Ref Range Status 10/12/2018 87.6 80.0 - 100.0 fl Final MCH Date Value Ref Range Status 10/12/2018 30.2 26.0 - 34.0 pg Final MCHC Date Value Ref Range Status 10/12/2018 34.5 31.0 - 37.0 % Final RDW Date Value Ref Range Status 10/12/2018 12.4 0.0 - 14.4 % Final Platelets Date Value Ref Range Status 10/12/2018 249 150 - 450 10E9/L Final MPV Date Value Ref Range Status 10/12/2018 9.0 fl Final Comment: MPV is platelet range and age dependent Differential Complete Date Value Ref Range Status 10/12/2018 Automated NA Final Band Neutrophil Date Value Ref Range Status 12/06/2017 7 5 - 11 % Final Segmented Neutrophils Date Value Ref Range Status 12/06/2017 32 (L) 35 - 66 % Final % Neutrophils Date Value Ref Range Status 10/12/2018 28.4 (L) 35.0 - 66.0 % Final Neutrophil # Date Value Ref Range Status 10/12/2018 2.0 10E3/uL Final Atypical Lymphocytes Date Value Ref Range Status 12/06/2017 2 0 - 8 % Final Lymphocytes Date Value Ref Range Status 12/06/2017 45 (H) 24 - 44 % Final % Lymphocytes Date Value Ref Range Status 10/12/2018 57.2 (H) 24.0 - 44.0 % Final % Monocytes Date Value Ref Range Status 10/12/2018 8.40 (H) 3.00 - 6.00 % Final % Eosinophils Date Value Ref Range Status 10/12/2018 4.90 (H) 0.00 - 3.00 % Final % Basophils Date Value Ref Range Status 07/26/2017 1 0 - 1 % Final % Metamyelocytes Date Value Ref Range Status 12/06/2017 0 0 - 0 % Final % Myelocytes Date Value Ref Range Status 12/06/2017 0 0 - 0 % Final % Promyelocytes Date Value Ref Range Status 12/06/2017 0 0 - 0 % Final Absolute Neutrophil No. Date Value Ref Range Status 12/06/2017 2.5 NA Final Cell Morphology Date Value Ref Range Status 12/06/2017 Normal NA Final Lab Results Component Value Date SEDRATE 6 10/12/2018 Lab Results Component Value Date CRP <0.5 10/12/2018 CBC and CMP from a month ago - unremarkable. Assessment: Yari Alcala is a 23 y.o. female with UC, achieved mucosal healing. Was on Remicade q 6 weeks. Currently on Humira started in July,. Taking MTX intermittently. Experiencing significant fatigue after Humira which almost lasts 2 weeks. Discussed possible switch to Entyvio in future if she continues to have symptoms after consistent MTX use. Will also try Linzess again for IBS-C. Counseling and/or coordination of care (face to face) was greater than 60 minutes of which 35 minutes which is more than 50% of the total time of 60 minutes spent on the encounter counseling and coordinating care. Plan: Continue with Humira every other week. Continue MTX and folic acid. Try Rowasa enemas and suppositories. Continue Levsin as needed for abdominal cramping. Contact [facility]: Dr. Rolando Berumen [facility] [address] [place], [place] [address] Follow up in 3 months. Normal [facility] Comprehensive Panelon 2018 ALP [Catalytic activity/Vol] 55 U/L Normal 45-117 [facility] Comment on above: Performed By: #### P 14 #### [facility] [address], [place] [address] Protein [Mass/Vol] 7.4 g/dL Normal 6.4-8.2 [facility] Comment on above: Performed By: #### P 14 #### [facility] [address], [place] [address] Bilirubin [Mass/Vol] 0.6 mg/dL Normal 0.2-1.0 [facility] Comment on above: Performed By: #### P 14 #### [facility] [address], [place] [address] ALT [Catalytic activity/Vol] 16 U/L Normal 12-78 [facility] Comment on above: Performed By: #### P 14 #### [facility] [address], [place] [address] AST [Catalytic activity/Vol] 11 U/L Low 15-37 [facility] Comment on above: Performed By: #### P 14 #### [facility] [address], [place] [address] Creatinine [Mass/Vol] 0.69 mg/dL Normal 0.51-0.95 [facility] Comment on above: Performed By: #### P 14 #### [facility] [address], [place] [address] Albumin [Mass/Vol] 4.2 g/dL Normal 3.4-5.0 [facility] Comment on above: Performed By: #### P 14 #### [facility] [address], [place] [address] Anion gap [Moles/Vol] 10 mmol/L Normal 8-16 [facility] Comment on above: Performed By: #### P 14 #### [facility] [address], [place] [address] CO2 [Moles/Vol] 26 mmol/L Normal 21-32 [facility] Comment on above: Performed By: #### P 14 #### [facility] [address], [place] [address] Glucose [Mass/Vol] 86 mg/dL Normal 70-99 [facility] Comment on above: Performed By: #### P 14 #### [facility] [address], [place] [address] Calcium [Mass/Vol] 9.2 mg/dL Normal 8.5-10.1 [facility] Comment on above: Performed By: #### P 14 #### [facility] [address] [place] [address] Urea nitrogen [Mass/Vol] 13 mg/dL Normal 7-18 [facility] Comment on above: Performed By: #### P 14 #### [facility] [address] [place] [address] Chloride [Moles/Vol] 108 mmol/L High 98-107 [facility] Comment on above: Performed By: #### P 14 #### [facility] [address] [place] [address] Potassium [Moles/Vol] 4.4 mmol/L Normal 3.5-5.1 [facility] Comment on above: Performed By: #### P 14 #### [facility] [address] [place] [address] Sodium [Moles/Vol] 140 mmol/L Normal 136-145 [facility] Comment on above: Performed By: #### P 14 #### [facility] [address] [place] [address] Hemogram/Diffon 02-06-2019 Abs Immature Grans 0.01 thou/cmm Normal 0.00-0.05 [facility] Comment on above: Performed By: #### C BCD1 #### [facility] [address] [place] [address] Abs Neut (ANC) 2.57 thou/cmm Normal 1.56-6.13 [facility] Comment on above: Performed By: #### C BCD1 #### [facility] [address] [place] [address] Abs. Baso 0.04 thou/cmm Normal 0.01-0.08 [facility] Comment on above: Performed By: #### C BCD1 #### [facility] [address] [place] [address] Abs. [place] 0.59 thou/cmm Normal 0.27-0.70 [facility] Comment on above: Performed By: #### C BCD1 #### [facility] [address] [place] [address] Basophils/100 WBC (Bld) 0.7 % Normal [facility] Comment on above: Performed By: #### C BCD1 #### [facility] [address], [place] [address] Eosinophils (Bld) [#/Vol] 0.30 thou/cmm Normal 0.00-0.31 [facility] Comment on above: Performed By: #### C BCD1 #### [facility] [address], [place] [address] Eosinophils/100 WBC (Bld) 5.0 % Normal [facility] Comment on above: Performed By: #### C BCD1 #### [facility] [address], [place] [address] Erythrocyte distribution width (RBC) [Ratio] 12.5 % Normal 11.7-14.4 [facility] Comment on above: Performed By: #### C BCD1 #### [facility] [address], [place] [address] Hematocrit (Bld) [Volume fraction] 42.1 % Normal 34.1-44.9 [facility] Comment on above: Performed By: #### C BCD1 #### [facility] [address], [place] [address] Hemoglobin (Bld) [Mass/Vol] 13.8 g/dL Normal 11.2-15.7 [facility] Comment on above: Performed By: #### C BCD1 #### [address] [address] Immature Grans 0.20 % Normal [facility] Comment on above: Performed By: #### C BCD1 #### [facility] [address], [place] [address] Lymphocytes (Bld) [#/Vol] 2.49 thou/cmm Normal 1.18-3.74 [facility] Comment on above: Performed By: #### C BCD1 #### [facility] [address], [place] [address] Lymphocytes/100 WBC (Bld) 41.5 % Normal [facility] Comment on above: Performed By: #### C BCD1 #### [facility] [address], [place] [address] MCH (RBC) [Entitic mass] 29.9 pg Normal 25.6-32.2 [facility] Comment on above: Performed By: #### C BCD1 #### [facility] [address], [place] [address] MCHC (RBC) [Mass/Vol] 32.8 % Normal 31.6-34.8 [facility] Comment on above: Performed By: #### C BCD1 #### [facility] [address] [place] [address] MCV (RBC) [Entitic vol] 91.3 fL Normal 79.4-94.8 [facility] Comment on above: Performed By: #### C BCD1 #### [facility] [address] [place] [address] Monocytes/100 WBC (Bld) 9.8 % Normal [facility] Comment on above: Performed By: #### C BCD1 #### [facility] [address] [place] [address] Platelet mean volume (Bld) [Entitic vol] 9.8 fL Normal 9.4-12.3 [facility] Comment on above: Performed By: #### C BCD1 #### [facility] [address] [place] [address] Platelets (Bld) [#/Vol] 233 thou/cmm Normal 182-369 [facility] Comment on above: Performed By: #### C BCD1 #### [facility] [address] [place] [address] RBC (Bld) [#/Vol] 4.61 mil/cmm Normal 3.93-5.22 [facility] Comment on above: Performed By: #### C BCD1 #### [facility] [address] [place] [address] RDW SD 41.3 fl Normal 36.4-46.3 [facility] Comment on above: Performed By: #### C BCD1 #### [facility] [address] [place] [address] Seg Neutrophil 42.8 % Normal [facility] Comment on above: Performed By: #### C BCD1 #### [facility] [address], [place] [address] WBC (Bld) [#/Vol] 6.00 thou/cmm Normal 3.98-10.04 [facility] Comment on above: Performed By: #### C BCD1 #### [facility] [address], [place] [address] MDRD GFRon 02-06-2019 GFR/1.73 sq M predicted among non-blacks MDRD (S/P/Bld) [Vol rate/Area] mL/min/{1.73_m2} Normal >60mL/min/1. 73m2 [facility] Comment on above: Result Comment: If t he patient is , multiply the result by 1.210. Performed By: #### G FR #### [facility] [address], [place] [address] Surgical Pathology Teston Surgical Pathology Test SEE BELOW Normal [facility] Comment on above: Result Comment: JUD Danielle DIAGNOSIS: A. Squamous esophageal mucosa - No diagnostic abnormality. B. Mild chronic gastritis. C. Duodenal mucosa - No diagnostic abnormality. D. Small bowel mucosa - No diagnostic abnormality. E. Colonic mucosa - No diagnostic abnormality. F. Colonic mucosa - No diagnostic abnormality. G. Colonic mucosa - No diagnostic abnormality. H. Colonic mucosa - No pathologic diagnostic abnormality, see microscopic description. I. Colonic mucosa - No diagnostic abnormality. SPECIMEN: A. ESOPHAGEAL BIOPSY B. STOMACH, BIOPSY C. DUODENAL BIOPSY D. BOWEL, BIOPSY- terminal ileum E. BOWEL, BIOPSY- right colon F. BOWEL, BIOPSY- left colon G. BOWEL, BIOPSY- transverse colon H. BOWEL, BIOPSY- rectum I. BOWEL, BIOPSY- sigmoid colon DATE OF SURGERY: 11/09/2018 CLINICAL INFORMATION: Ulcerative pancolitis with rectal bleeding. Diarrhea, unspecified type. GROSS DESCRIPTION: Nine biopsies are submitted fixed in formalin as follows: A. Esophagus. Two white-lewis mucosal fragments measuring 0.2 x 0.1 x 0.1 cm. B. Stomach. One white-lewis mucosal fragment measuring 0.3 x 0.2 x 0.1 cm. C. Duodenum. Two white-lewis mucosal fragments measuring 0.2 x 0.2 x 0.1 cm. D. Terminal ileum. One white-lewis mucosal fragment measuring 0.3 x 0.2 x 0.1 cm. E. Right colon. One white-lewis mucosal fragment measuring 0.4 x 0.2 x 0.1 cm. F. Left colon. Three white-lewis mucosal fragments measuring 0.3 x 0.2 x 0.1 cm. G. Transverse colon. Two white-lewis mucosal fragments measuring 0.2 x 0.2 x 0.1 cm. H. Rectum. Two white-lewis mucosal fragments measuring 0.2 x 0.2 x 0.1 cm. I. Sigmoid colon. Three white-lewis mucosal fragments measuring 0.3 x 0.2 x 0.1 cm. MICROSCOPIC EXAMINATION: A. Sections demonstrate squamous epithelium with normal maturation and no evidence of inflammation, metaplasia, or atypia. B. There are mild increased lymphocytes and plasma cells within the superficial lamina propria. The glandular architecture is preserved. A small lymphoid aggregate consisting of small lymphocytes is present in the deeper lamina propria. H. pylori immunostain is negative with appropriate controls ([facility] [id number]). C. Sections show small bowel/duodenal mucosa with normal villous and crypt architecture. The lamina propria inflammatory cell population is normal. There is no increase in intraepithelial lymphocytes. There is no neutrophilic, eosinophilic, or granulomatous inflammation. D. Sections show small bowel/duodenal mucosa with normal villous and crypt architecture. The lamina propria inflammatory cell population is normal. There is no increase in intraepithelial lymphocytes. There is no neutrophilic, eosinophilic, or granulomatous inflammation. E. Sections show colonic mucosa with normal crypt architecture and a normal lamina propria inflammatory cell population. There is no neutrophilic, eosinophilic, or granulomatous inflammation. F. Sections show colonic mucosa with normal crypt architecture and a normal lamina propria inflammatory cell population. There is no neutrophilic, eosinophilic, or granulomatous inflammation. G. Sections show colonic mucosa with normal crypt architecture and a normal lamina propria inflammatory cell population. There is no neutrophilic, eosinophilic, or granulomatous inflammation. H. Two of the fragments show colonic mucosa with normal crypt architecture and a normal lamina propria inflammatory cell population. In these two sections there is no neutrophilic, eosinophilic, or granulomatous inflammation. Only on slide H1-1, in the third fragment, there is a lymphoid aggregate consisting of small lymphocytes and an adjacent crypt with two intra epithelial neutrophils. The crypt architecture is normal. These findings are subtle and do not rise to the level of diagnostic pathologic abnormality. They are noted in this report because they could represent an incipient inflammatory process or a biopsy taken near a more diagnostic area. Bowel preparatory effect is also a possibility. Clinical correlation with intra-operative findings is recommended. I. Sections show colonic mucosa with normal crypt architecture and a normal lamina propria inflammatory cell population. There is no neutrophilic, eosinophilic, or granulomatous inflammation. COMMENT: This report was delayed due to unavailability of H. Pylori immunostain. EMMANUEL BURGESS MD 11/15/2018 Performed By: #### C BC #### [address] [address] Immunoglobulin Aon 9 Immunoglobulin A 214 mg/dL Normal 59-337 [facility] Comment on above: Performed By: #### I GA #### [address] [address] Transglutaminase IgAon 10-14 Transglutaminase IgA <20.00 Normal 0.00-20.00 [facility] [place] [facility] Comment on above: Result Comment: Negative: < 20 Units Weak Positive: 20-30 Units Moderate to Strong Positive: > 30 Units Performed By: #### T RGLA #### [address] [address] C. difficile by Amplificatio non 10-13-2018 C. difficile by Amplification C. difficile by Amplification: NEGATIVE for toxin-producing C. difficile Source: STOOL Collected: 10/13/18 00:00 Site: Received : 10/13/18 15:40 C. difficile by Amplification FINAL 10/14/18 12:33 NEGATIVE for toxin-producing C. difficile - DNA Amplification assay for the detection of cytotoxigenic C. difficile in stool specimens. - This molecular assay has a reported sensitivity and specificity of 95%. - Reference Range: A healthy person is usually negative for C. difficile toxin. However, in some patients, particularly children under 2 years of age, C. difficile can be present as asymptomatic colonization. Normal [facility] Comment on above: Performed By: #### C DIFA #### [address] [address] Enteric Cultureon 10-13-2018 Enteric Culture Enteric Culture: No Salmonella or Shigella isolated. Source: STOOL Collected: 10/13/18 00:00 Site: Received : 10/13/18 15:40 Shiga Toxin, stool FINAL 10/14/18 13:19 NEGATIVE Test for SHIGA TOXINS 1 and 2 - Immunochromatographic assay - Shiga toxin 1 and 2 are produced by enterohemorrhagic E. coli infections. A negative test is evidence for the absence of E. coli 0157:H7 or other toxin producing E. coli. - The presence or absence of Shigella spp. is reported with the enteric pathogen culture result. Campylobacter Culture FINAL 10/16/18 09:26 Culture negative for Campylobacter Enteric Culture FINAL 10/16/18 09:13 No Salmonella or Shigella isolated. - Culture was examined for pathogens Salmonella, Shigella, Campylobacter and Shiga-toxin positive E.coli. Normal [facility] Comment on above: Performed By: #### S TOOL #### [address] [address] TSHon 10-13-2018 TSH Qn 0.986 uIU/mL Normal 0.350-5.500 [facility] Comment on above: Performed By: #### T SH #### [address] [address] ABDOMEN 1 VIEWon 10-12-2018 ABDOMEN 1 VIEW CLINICAL HISTORY: constipation COMPARISON: None IMPRESSION: Single AP supine view of the abdomen was performed and presented on the. There is moderate stool loading. Bowel gas pattern is nonobstructed. No abnormal calcifications. Dextroconvex curvature of the thoracolumbar spine noted. This report has been created using voice recognition software Signed by: Dr. Yeni Saunders at 10/12/2018 15:12 Normal [facility] C-Reactive Proteinon 019 CRP [Mass/Vol] mg/L Normal 0.0-1.0 [facility] Comment on above: Result Comment: CRP determinations in neonates should be interpreted with caution. CRP may be elevated in circumstances not associated with inflammation (e.g. difficult delivery, pneumothorax). In premature neonates CRP levels may not rise to abnormal levels even if sepsis is present; some speculate that immature liver function decreases the ability to generate a CRP response. Performed By: #### C RP #### [address] [address] Comp Metabolic Panelon 10-12 Albumin [Mass/Vol] 4.6 g/dL Normal 3.5-5.0 [facility] Comment on above: Performed By: #### C MP #### [address] [id number] ALP [Catalytic activity/Vol] 40 U/L Normal 35-104 [facility] Comment on above: Performed By: #### C MP #### [address] [id number] ALT [Catalytic activity/Vol] 12 U/L Normal 0-31 [facility] Comment on above: Performed By: #### C MP #### [address] [id number] AST [Catalytic activity/Vol] 17 U/L Normal 0-31 [facility] Comment on above: Performed By: #### C MP #### [address] [address] Bili,Total 1.0 mg/dl Normal 0.0-1.0 [facility] Comment on above: Result Comment: Premature : 1 Day 1.0-6.0 mg/dl 2 Day 6.0-8.0 mg/dl 3-5 Day 10.0-15.0 mg/dl Performed By: #### C MP #### [address] [id number] Calcium [Mass/Vol] 9.4 mg/dL Normal 7.6-11.0 [facility] Comment on above: Performed By: #### C MP #### [address] [address] Chloride [Moles/Vol] 105 mmol/L Normal 96-108 [facility] Comment on above: Performed By: #### C MP #### [address] [address] CO2 [Moles/Vol] 24.9 mmol/L Normal 22.0-29.0 [facility] Comment on above: Performed By: #### C MP #### [address] [address] Creatinine [Mass/Vol] 0.80 mg/dL Normal 0.50-1.[address] [facility] Comment on above: Result Comment: Premature 0.3-1.0 mg/dL Performed By: #### C MP #### [address] [address] Glucose [Mass/Vol] 81 mg/dL Normal 70-99 [facility] Comment on above: Result Comment: Criteria for Diagnosis of Diabetes(Effective 11/03/10): Fasting specimen (no caloric intake for at least 8 hours). <100 mg/dl Normal 100-125 mg/dl Increased Risk for Diabetes >125 mg/dl Diagnostic for Diabetes Random Glucose (any time of day without regard to last meal). >=200 mg/dl plus Classic Symptoms of Diabetes Performed By: #### C MP #### [address] [address] Potassium [Moles/Vol] 4.0 mmol/L Normal 3.3-5.[address] [facility] Comment on above: Performed By: #### C MP #### [address] [address] Protein [Mass/Vol] 7.3 g/dL Normal 5.9-8.4 [facility] Comment on above: Performed By: #### C MP #### [address] [address] Sodium [Moles/Vol] 139 mmol/L Normal 133-145 [facility] Comment on above: Performed By: #### C MP #### [address] [address] Urea nitrogen [Mass/Vol] 10 mg/dL Normal 4-19 [facility] Comment on above: Performed By: #### C MP #### [address] [id number] Complete Blood Counton 10-12 Differential Complete Automated Normal [facility] Comment on above: Performed By: #### C BC #### [address] [address] Basophils/100 WBC (Bld) 1.00 % Normal 0.00-1.00 [facility] Comment on above: Performed By: #### C BC #### [address] [address] Eosinophils/100 WBC (Bld) 4.90 % High 0.00-3.00 [facility] Comment on above: Performed By: #### C BC #### [address] [address] Erythrocyte distribution width (RBC) [Ratio] 12.4 % Normal 0.0-14.4 [facility] Comment on above: Performed By: #### C BC #### [address] [address] Hematocrit (Bld) [Volume fraction] 39.4 % Normal 36.0-44.0 [facility] Comment on above: Performed By: #### C BC #### [address] [address] Hemoglobin (Bld) [Mass/Vol] 13.6 g/dL Normal 12.0-15.0 [facility] Comment on above: Performed By: #### C BC #### [address] [id number] Immature granulocytes/100 WBC (Bld) 0.10 % Normal [facility] Comment on above: Result Comment: Maria Victoria ture Granulocyte Percent includes promyelocytes, myelocytes, and metamyelocytes. IG% > 1.0 indicates a left shift is present. With automated differentials, bands are included in the neutrophil count and not in the Immature Granulocyte Percent. Performed By: #### C BC #### [address] [id number] Lymphocytes/100 WBC (Bld) 57.2 % High 24.0-44.0 [facility] Comment on above: Performed By: #### C BC #### [address] [address] MCH (RBC) [Entitic mass] 30.2 pg Normal 26.0-34.0 [facility] Comment on above: Performed By: #### C BC #### [address] [address] MCHC (RBC) [Mass/Vol] 34.5 % Normal 31.0-37.[address] [facility] Comment on above: Performed By: #### C BC #### [address] [address] MCV (RBC) [Entitic vol] 87.6 fL Normal 80.0-100.0 [facility] Comment on above: Performed By: #### C BC #### [address] [address] Monocytes/100 WBC (Bld) 8.40 % High 3.00-6.00 [facility] Comment on above: Performed By: #### C BC #### [address] [address] [place] [address] Neutrophils (Bld) [#/Vol] 2.0 10*3/uL Normal [facility] Comment on above: Performed By: #### C BC #### [address] [address] [place] [address] Neutrophils/100 WBC (Bld) 28.4 % Low 35.0-66.0 [facility] Comment on above: Performed By: #### C BC #### [address] [address] [place] [address] Nucleated RBC/100 WBC (Bld) [Ratio] 0.0 % Normal -1.0-0.0 [facility] Comment on above: Performed By: #### C BC #### [address] [address] Platelet mean volume (Bld) [Entitic vol] 9.0 fL Normal [facility] Comment on above: Result Comment: MPV is platelet range and age dependent Performed By: #### C BC #### [address] [address] [place] [address] Platelets (Bld) [#/Vol] 249 10*3/uL Normal 150-450 [facility] Comment on above: Performed By: #### C BC #### [address] [address] [place] [address] RBC (Bld) [#/Vol] 4.50 10E12/L Normal 4.00-4.90 [facility] Comment on above: Performed By: #### C BC #### [address] [address] [place] [address] WBC (Bld) [#/Vol] 6.9 10*3/uL Normal 4.5-11.0 [facility] Comment on above: Performed By: #### C BC #### [facility] [address] [place] [address] ESRon 10-12-2018 ESR (Bld) [Velocity] 6 mm Normal [facility] Comment on above: Performed By: #### S RATE #### [facility] [address] [place] [address] ESR (Bld) [Velocity] ----- Normal [facility] Comment on above: Result Comment: Male Female Child 0-13 Child 0-13 Adult 0- 9 Adult 0-20 Performed By: #### S RATE #### [facility] [address] [place] [address] Progress Noteon 10-12-2018 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 female. The patient's reason for visit is ulcerative colitis. She is unaccompanied. Ulcerative Colitis I had the pleasure of seeing Yari Alcala today in Pediatric Gastroenterology and Nutrition clinic at [facility] for follow up for UC. Diagnosed at age 14. Since last visit developed antibodies to Remicade. Switched over the Humira, just finished induction. Next dose due 10/19/18. Having abdominal pain, urgency, passing a lot of mucous, some blood. Days she is having diarrhea, large amounts of mushy stools. Also had some constipation around a month ago. Not taking Linzess. Feels fatigue for a day of two after Humira. Also taking MTX and FA with no issues. Before last infusion had diarrhea, no blood, lower abdominal discomfort and stool urgency, Sometimes has mucous.. Lasted 2 weeks. Improved after infusion. Weight is slightly down from 74.4 kg to 73.9 today. Normal urine output. Also has IBS. Also on Valtrex for genital herpes, which is now resolved. Previous visits Yari has stated that Mesalamine enemas help but make her stools are looser and the pain improves with defecation. Previously checked Remicade level for concern for antibodies, her levels at 4 weeks were > 32. In the past had systemic side effects with cortenema - increased appetite and some cushingoid features per her mother and Yari. In the past tried a FODMAP and thought it was really hard with her lifestyle - although in the past reported that she thought dairy and possibly gluten were triggers, but then felt it didn't help her symptoms. No longer taking Levsin because it didn't seem to help. Got the flu shot this year. Endoscopy 05/19/17: A. Squamous esophageal mucosa no diagnostic abnormality B. Gastric mucosa no diagnostic abnormality C. Duodenal mucosa no diagnostic abnormality D. Small bowel mucosa no diagnostic abnormality E. Colonic mucosa no diagnostic abnormality F. Colonic mucosa no diagnostic abnormality G. Colonic mucosa no diagnostic abnormality Inflammatory Bowel Disease Symptoms include abdominal pain, diarrhea and joint pain. Her disease is in a chronic state. The disease extends to the left colon and right colon. The course is recurrent. Yari's symptoms are described as moderate. She has 3 stools per day. Her stool is soft and brown. There is no blood in her stool. Patient receives nutrition orally. Her diet includes a well balanced diet. Medications include Remicade, Methotrexate, Folic acid. Previously run lab tests include: CBC, CMP, CRP and ESR - unremarakbe. I have reviewed past medical, surgical, social and family history, medications and allergies as documented in the patient's electronic medical record. GI ROS Constitutional: Negative for weight loss, recurrent fevers and malaise/fatigue. HENT: Negative for ear infections, trouble swallowing and sore throat. Eyes: Negative for wears glasses. Respiratory: Negative for asthma. Cardiovascular: Negative for heart problems. Endocrine: Negative for poor growth. Breasts: Negative for breast discharge and breast mass. Gastrointestinal: Positive for abdominal pain. Negative for diarrhea, blood in stool and trouble swallowing. Genitourinary: Negative for dysuria, frequent urination and kidney problems. Neurological: Negative for headaches, attention deficit and muscle weakness. Musculoskeletal: Positive for joint pain and back pain. Skin: Negative for rash, acne and skin problem. Allergy/Immune: Negative for allergies and frequent infections. Hematology: Negative for no anemia and no adenopathy. Objective: Physical Exam Constitutional: She appears well-developed and well-nourished. She is active. HENT: Mouth/Throat: Her mucous membranes are moist. Her oropharynx is clear. Eyes: Her conjunctivae and EOM are normal. Neck: Her neck is supple. Theres is no adenopathy. Cardiovascular: No murmur heard. Pulmonary/Chest: Effort normal and breath sounds normal. Abdominal: Her abdomen is soft. She exhibits no distension. Bowel sounds are normal. There is no tenderness. There is no CVA tenderness present.There is no hepatosplenomegaly. Musculoskeletal: Normal range of motion. Neurological: She is alert. She has normal strength. Skin: Skin is warm and dry. Capillary refill takes less than 3 seconds. No rash noted. No pallor. Vitals reviewed. Lab Results Component Value Date NA 140 08/09/2018 K 3.9 08/09/2018 CL 107 08/09/2018 CO2 25.9 08/09/2018 BUN 13 08/09/2018 GLU 92 08/09/2018 BILITOT 0.7 08/09/2018 AST 23 08/09/2018 ALT 17 08/09/2018 ALKPHOS 43 08/09/2018 CALCIUM 8.4 08/09/2018 PROT 7.2 08/09/2018 ALB 4.1 08/09/2018 CREATININE 0.76 08/09/2018 WBC Date Value Ref Range Status 08/09/2018 6.7 4.5 - 11.0 10E9/L Final RBC Date Value Ref Range Status 08/09/2018 4.41 4.00 - 4.90 10E12/L Final Hemoglobin Date Value Ref Range Status 08/09/2018 13.3 12.0 - 15.0 g/dl Final Hematocrit Date Value Ref Range Status 08/09/2018 39.5 36.0 - 44.0 % Final MCV Date Value Ref Range Status 08/09/2018 89.6 80.0 - 100.0 fl Final MCH Date Value Ref Range Status 08/09/2018 30.2 26.0 - 34.0 pg Final MCHC Date Value Ref Range Status 08/09/2018 33.7 31.0 - 37.0 % Final RDW Date Value Ref Range Status 08/09/2018 12.0 0.0 - 14.4 % Final Platelets Date Value Ref Range Status 08/09/2018 265 150 - 450 10E9/L Final MPV Date Value Ref Range Status 08/09/2018 9.1 fl Final Comment: MPV is platelet range and age dependent Differential Complete Date Value Ref Range Status 08/09/2018 Automated NA Final Band Neutrophil Date Value Ref Range Status 12/06/2017 7 5 - 11 % Final Segmented Neutrophils Date Value Ref Range Status 12/06/2017 32 (L) 35 - 66 % Final % Neutrophils Date Value Ref Range Status 08/09/2018 47.7 35.0 - 66.0 % Final Neutrophil # Date Value Ref Range Status 08/09/2018 3.2 NA Final Atypical Lymphocytes Date Value Ref Range Status 12/06/2017 2 0 - 8 % Final Lymphocytes Date Value Ref Range Status 12/06/2017 45 (H) 24 - 44 % Final % Lymphocytes Date Value Ref Range Status 08/09/2018 37.2 24.0 - 44.0 % Final % Monocytes Date Value Ref Range Status 08/09/2018 9.70 (H) 3.00 - 6.00 % Final % Eosinophils Date Value Ref Range Status 08/09/2018 4.30 (H) 0.00 - 3.00 % Final % Basophils Date Value Ref Range Status 07/26/2017 1 0 - 1 % Final % Metamyelocytes Date Value Ref Range Status 12/06/2017 0 0 - 0 % Final % Myelocytes Date Value Ref Range Status 12/06/2017 0 0 - 0 % Final % Promyelocytes Date Value Ref Range Status 12/06/2017 0 0 - 0 % Final Absolute Neutrophil No. Date Value Ref Range Status 12/06/2017 2.5 NA Final Cell Morphology Date Value Ref Range Status 12/06/2017 Normal NA Final Lab Results Component Value Date SEDRATE 6 08/09/2018 Lab Results Component Value Date CRP 0.6 08/09/2018 Assessment: Yari Alcala is a 23 y.o. female with UC, achieved mucosal healing. Was on Remicade q 6 weeks. Recently stopped MTX, developed antibodies, Just switched to Humira in July. In preparation for procedure the indications were thoroughly explained including infectious, allergic and inflammatory etiologies. The risks of the procedure were also explained including perforation, bleeding and discomfort. I reviewed specifically that general anesthesia will be used during the procedure. Family verbalized understanding and agreed. Plan: Continue with Humira every other week. Continue with MTX every Wednesday and FA (MTW). Labs today. Drop off stool studies. Schedule an EGD and Colonoscopy. Plan to check a Humira level prior to next dose. Follow up in 3 months. Normal [facility] Vital Signs Date Time Vital Sign Value Performing Clinician Facility 03-16-2025 09:57-0400 Body mass index (BMI) [Ratio] 22.33 kg/m2 [facility] 03-16-2025 09:57-0400 Body weight 76.26 kg [facility] 03-16-2025 09:57-0400 Diastolic blood pressure 70 mm[Hg] [facility] 03-16-2025 09:57-0400 Systolic blood pressure 122 mm[Hg] [facility] 10-31-2024 16:13-0400 Body height 182.88 cm Addie Matute DO Work Phone: [facility] 10-31-2024 16:13-0400 Body mass index (BMI) [Ratio] 22.5 kg/m2 Addie Matute DO Work Phone: [facility] 10-31-2024 16:13-0400 Body temperature 98.4 [degF] Addie Matute DO Work Phone: [facility] 10-31-2024 16:13-0400 Body weight 75.46 kg Addie Matute DO Work Phone: [facility] 10-31-2024 16:13-0400 Diastolic blood pressure 70 mm[Hg] Addie Matute DO Work Phone: [facility] 10-31-2024 16:13-0400 Heart rate 63 /min Addie Matute DO Work Phone: [facility] 10-31-2024 16:13-0400 Respiratory rate 14 /min Addie Matute DO Work Phone: [facility] 10-31-2024 16:13-0400 SaO2% (BldA) [Mass fraction] 99 % Addie Matute DO Work Phone: [facility] 10-31-2024 16:13-0400 Systolic blood pressure 109 mm[Hg] Addie Matute DO Work Phone: [facility] 09-28-2024 13:10-0400 Body height 182.88 cm [facility] 09-28-2024 13:10-0400 Body mass index (BMI) [Ratio] 22.8 kg/m2 [facility] 09-28-2024 13:10-0400 Body weight 76.3 kg [facility] 09-28-2024 13:10-0400 Diastolic blood pressure 68 mm[Hg] [facility] 09-28-2024 13:10-0400 Systolic blood pressure 102 mm[Hg] [facility] 09-28-2024 10:47-0400 Body height 182.88 cm [facility] 09-28-2024 10:47-0400 Body mass index (BMI) [Ratio] 22.9 kg/m2 [facility] 09-28-2024 10:47-0400 Body weight 76.68 kg [facility] 09-28-2024 10:47-0400 Diastolic blood pressure 62 mm[Hg] [facility] 09-28-2024 10:47-0400 Heart rate 62 /min [facility] 09-28-2024 10:47-0400 Respiratory rate 18 /min [facility] 09-28-2024 10:47-0400 SaO2% (BldA) [Mass fraction] 98 % [facility] 09-28-2024 10:47-0400 Systolic blood pressure 88 mm[Hg] [facility] 04-17-2024 13:14-0500 Body height 182.88 cm Addie Matute DO Work Phone: [facility] 04-17-2024 13:14-0500 Body mass index (BMI) [Ratio] 22.4 kg/m2 Addie Matute DO Work Phone: [facility] 04-17-2024 13:14-0500 Body weight 74.84 kg Addie Matute DO Work Phone: [facility] 10-28-2022 10:26-0400 Diastolic blood pressure 70 mm[Hg] DO Addie Matute Work Phone: [facility] 10-28-2022 10:26-0400 Heart rate 73 /min DO Addie Giovani Work Phone: [facility] 10-28-2022 10:26-0400 Respiratory rate 16 /min DO Addie Giovani Work Phone: [facility] 10-28-2022 10:26-0400 SaO2% (BldA) [Mass fraction] 100 % DO Addie Giovani Work Phone: [facility] 10-28-2022 10:26-0400 Systolic blood pressure 113 mm[Hg] DO Addie Matute Work Phone: [facility] 10-28-2022 08:39-0400 Body height 182.88 cm DO Addie Giovani Work Phone: [facility] 10-28-2022 08:39-0400 Body temperature 98 [degF] DO Addie Giovani Work Phone: [facility] 10-28-2022 08:39-0400 Body weight 78.92 kg DO Addie Giovani Work Phone: [facility] 09-30-2022 16:30-0400 Body height 182.88 cm Addie Matute Other [facility] [employer] Other 09-30-2022 16:30-0400 Body mass index (BMI) [Ratio] 23.77 kg/m2 Addie Giovani Other [facility] Other 09-30-2022 16:30-0400 Body weight 79.52 kg Addie Matute Other [facility] [employer] Other 09-30-2022 16:30-0400 Diastolic blood pressure 72 mm[Hg] Addie Matute Other [facility] Other 09-30-2022 16:30-0400 Respiratory rate 18 /min Addie Matute Other [address] [facility] Other 09-30-2022 16:30-0400 SaO2% (BldA) [Mass fraction] 98 % Addie Matute Other [facility] Other 09-30-2022 16:30-0400 Systolic blood pressure 114 mm[Hg] Addie Matute Other [facility] Other 07-21-2022 16:15-0500 Body height 182.88 cm Addie Matute Other [address] [facility] Other 07-21-2022 16:15-0500 Body mass index (BMI) [Ratio] 24.21 kg/m2 Addie Matute Other [facility] Other 07-21-2022 16:15-0500 Body temperature 98.9 [degF] Addie Matute Other [facility] Other 07-21-2022 16:15-0500 Body weight 80.97 kg Addie Matute Other [facility] Other 07-21-2022 16:15-0500 Diastolic blood pressure 78 mm[Hg] Addie Matute Other [address] [facility] Other 07-21-2022 16:15-0500 SaO2% (BldA) [Mass fraction] 99 % Addie Matute Other [facility] Other 02-21-2023 16:15-0500 Systolic blood pressure 128 mm[Hg] Addie Matute Other [facility] Other 06-23-2021 08:45-0500 Body height 182.88 cm Shoaib Kaur Other [facility] Other 06-23-2021 08:45-0500 Body mass index (BMI) [Ratio] 21.83 kg/m2 Shoaib Kaur Other [facility] Other 06-23-2021 08:45-0500 Body weight 73.03 kg Shoaib Kaur Other [facility] Other 06-23-2021 08:45-0500 Diastolic blood pressure 66 mm[Hg] Shoaib Kaur Other [address] [facility] Other 06-23-2021 08:45-0500 Respiratory rate 18 /min Shoaib Kaur Other [address] [facility] Other 06-23-2021 08:45-0500 SaO2% (BldA) [Mass fraction] 98 % Shoaib Kaur Other [address] [facility] Other 06-23-2021 08:45-0500 Systolic blood pressure 114 mm[Hg] Shoaib Kaur Other [facility] Other 04-23-2021 11:15-0500 Body height 182.88 cm Shoaib Kaur Other [address] [facility] Other 04-23-2021 11:15-0500 Body mass index (BMI) [Ratio] 21.25 kg/m2 Shoaib Kaur Other [address] [facility] Other 04-23-2021 11:15-0500 Body weight 71.08 kg Shoaib Kaur Other [address] [facility] Other 04-23-2021 11:15-0500 Diastolic blood pressure 70 mm[Hg] Shoaib Kaur Other [address] [facility] Other 04-23-2021 11:15-0500 Respiratory rate 18 /min Shoaib Kaur Other [address] [facility] Other 04-23-2021 11:15-0500 SaO2% (BldA) [Mass fraction] 98 % Shoaib Kaur Other [facility] Other 04-23-2021 11:15-0500 Systolic blood pressure 108 mm[Hg] Shoaib Kaur Other [address] [facility] Other 12-23-2018 19:29-0400 Body Temperature 98.5 [degF] [facility] Work Phone: 12-23-2018 19:29-0400 BP Diastolic 79 mm[Hg] [facility] Work Phone: 12-23-2018 19:29-0400 BP Systolic 129 mm[Hg] [facility] Work Phone: 12-23-2018 19:29-0400 Pulse (Heart Rate) 86 /min [facility] Work Phone: 12-23-2018 19:29-0400 Pulse Oximetry 98 % [facility] Work Phone: 12-23-2018 19:29-0400 Respiratory Rate 16 /min [facility] Work Phone: 12-23-2018 19:29-0400 6 1 [facility] Work Phone: Comment on above: Pain Scale Encounters Encounter Date Encounter Type Care Provider Facility Start: 03-16-2025 End: 03-16-2025 Office outpatient visit 5 minutes Isabel [facility] Tori OBDURANN Comment on above: GA: 13w6d Start: 02-13-2025 End: 02-13-2025 Patient encounter procedure Addie A Matute DO -Lab [address] Work Phone: Start: 02-13-2025 End: 02-13-2025 ambulatory Addie A Matute DO Work Phone: [facility] Work Phone: Start: 10-31-2024 End: 10-31-2024 ambulatory Addie A Matute DO Work Phone: [facility] [place] Work Phone: Start: 10-31-2024 End: 10-31-2024 Patient encounter procedure Addie Matute DO Work Phone: [facility] Physician [facility] Work Phone: Start: 10-19-2024 End: 10-19-2024 Patient encounter procedure Addie Matute DO Work Phone: [facility] [place] Work Phone: Start: 10-19-2024 End: 10-19-2024 ambulatory Addie A Matute DO Work Phone: [facility] Work Phone: Start: 09-28-2024 End: 09-28-2024 ambulatory [facility] Work Phone: Start: 09-28-2024 End: 09-28-2024 Patient encounter procedure [facility] Phys[facility] Work Phone: Start: 09-28-2024 Physical examination [facility] Start: 09-28-2024 End: 09-28-2024 ambulatory [facility] Work Phone: Start: 09-28-2024 End: 09-28-2024 Encounter for general adult medical examination without abnormal findings [facility] Start: 09-28-2024 End: 09-28-2024 Patient encounter procedure [facility] Work Phone: Start: 08-24-2024 Non-patient / Non-visit [facility] [facility] Work Phone: Start: 05-17-2024 End: 05-17-2024 ambulatory Alem L Ly Facility:[facility] Start: 05-04-2024 End: 05-04-2024 ambulatory Alem L Ly Facility:[facility] Start: 05-03-2024 End: 05-03-2024 ambulatory Alem L Ly Facility:[facility] Start: 04-17-2024 End: 04-17-2024 ambulatory Addie A Matute DO Work Phone: [facility] Work Phone: Start: 04-17-2024 End: 04-17-2024 Patient encounter procedure Addie Matute DO Work Phone: [facility] [place] Work Phone: Start: 12-28-2022 End: 12-28-2022 ambulatory Imad Paoload Other [facility] Other Start: 12-28-2022 Encounter by compute r link Rachel Lemon [facility] Gastroenterology Start: 10-28-2022 End: 10-28-2022 Admission to same day surgery center DO Addie Matute Work Phone: [facility] Work Phone: Start: 10-28-2022 End: 10-28-2022 ambulatory DO Addie A Matute Work Phone: [facility] Work Phone: Start: 10-06-2022 End: 10-06-2022 Patient encounter procedure DO Addie Matute Work Phone: [facility] [place] Work Phone: Start: 09-30-2022 End: 09-30-2022 Departed Referred DO Addie Matute Work Phone: [facility] [place] Work Phone: Start: 09-30-2022 End: 09-30-2022 ambulatory DO Addie Matute Work Phone: [facility] Work Phone: Start: 09-30-2022 Office outpatient visit 15 minutes Addie Matute [facility] Start: 09-10-2022 End: 09-10-2022 ambulatory Imad Asaad Other [facility] Other Start: 09-10-2022 Telephone encounter Imalissa Lemon [facility] Gastroenterology Start: 07-21-2022 End: 07-21-2022 ambulatory Addie Matute Other [facility] Other Start: 07-21-2022 Office outpatient visit 25 minutes Addievinay Matute [facility] Start: 07-16-2022 End: 07-16-2022 ambulatory Addie Matute Other [facility] Other Start: 07-16-2022 Telephone encounter Addie Matute [facility] Start: 11-06-2021 End: 11-06-2021 ambulatory Boubacar Lazo Other [facility] Other Start: 11-06-2021 Telephone encounter Boubacar Lazo [facility] Gastroenterology Start: 09-17-2021 ambulatory BOUBACAR LAZO JR Facili ty:[facility] Start: 09-02-2021 End: 09-02-2021 ambulatory Shoaib Kaur Other [facility] Other Start: 09-02-2021 Telephone encounter Shoaib [facility] Start: 09-01-2021 End: 09-01-2021 ambulatory Shoaib Kaur Other [facility] Other Start: 09-01-2021 Telephone encounter Shoaib Kaur [facility] Start: 08-12-2021 End: 08-12-2021 ambulatory Boubacar Lazo Other [facility] Other Start: 08-12-2021 Telephone encounter Boubacar Lazo [facility] Start: 06-23-2021 (Procedure) Short Shoaib Kaur [facility] Start: 06-23-2021 End: 06-23-2021 ambulatory Shoaib Kaur Other [facility] Other Start: 05-26-2021 End: 05-26-2021 ambulatory Shoaib Kaur Other [facility] Other Start: 05-26-2021 Telephone encounter Shoaib Kaur [facility] Start: 05-08-2021 End: 05-08-2021 ambulatory Shoaib Kaur Other [facility] Other Start: 05-08-2021 Telephone encounter Shoaib Kaur [facility] Start: 05-06-2021 End: 05-06-2021 ambulatory Shoaib Kaur Other [facility] Other Start: 05-06-2021 Telephone encounter Shoaib Kaur [facility] Start: 04-23-2021 End: 04-23-2021 ambulatory Shoaib Kaur Other [facility] Other Start: 04-23-2021 Office outpatient visit 25 minutes Shoaib Kaur [facility] [place] Start: 04-08-2021 End: 04-08-[address] DOCTOR MAKI Facility: Start: 09-19-2020 End: 09-20-2020 ambulatory NONE LISTED REQUEST Facility:[facility] Start: 03-16-2020 End: 03-16-2020 Refill Kristy Munoz (Philanthropy Officer Certification Technician) Franky Work Phone: [facility] Comment on above: Refill Request Procedures Date Procedure Procedure Detail Performing Clinician Start: 03-16-2025 Urnls dip stick/tabl et rgnt non-auto w/o micrscp Pablo Hall DO Work Phone: Start: 10-28-2022 Colonoscopy DO Addie Matute Work Phone: Start: 12-23-2018 Follow-up visit Plan of Treatment Date Care Activity Detail Author Start: 02-06-2029 Urine microalbumin profile DTAP,TDAP,TD (8 - Td) [facility] Start: 04-10-2025 End: 04-10-2025 Patient encounter procedure 04/10/2025 1:40 PM EST Routine JOELLEN RDZ [address] [place] [id number] Pablo Hall DO [address] [place], [place] [address] JOELLEN Valle [facility] Start: 03-16-2025 End: 03-16-2026 ABO/Rh ABO/Rh Lab Routine Missed menses , unspecified gestational age ([facility]) Expected: 03/16/2025 (Approximate), Expires: 03/16/2026 [facility] Comment on above: Expected: 03/16/2025 (Approximate), Expires: 03/16/2026 Start: 03-16-2025 End: 03-16-2026 Blood type and Indirect antibody screen panel - Blood Type and screen Lab Routine Missed menses , unspecified gestational age ([facility]) Expected: 03/16/2025 (Approximate), Expires: 03/16/2026 [facility] Comment on above: Expected: 03/16/2025 (Approximate), Expires: 03/16/2026 Start: 03-16-2025 End: 03-16-2026 Drugs of abuse panel - Urine by Screen method Rapid drug screen, urine Lab Routine , unspecified gestational age ([facility]) Encounter for supervision of normal first in first trimester ([facility]) Expected: 03/16/2025 (Approximate), Expires: 03/16/2026 [facility] Comment on above: Expected: 03/16/2025 (Approximate), Expires: 03/16/2026 Start: 03-06-2025 End: 06-06-2025 US Pelvis transvaginal US OB transvaginal Imaging Routine Missed menses Positive urine test ([facility]) Expected: 03/06/2025, Expires: 06/06/2025 [facility] Work Phone: Comment on above: Expected: 03/06/2025 , Expires: 06/06/2025 Start: 10-19-2024 [facility] Start: 04-17-2024 Hepatitis B core antibody measurement [facility] Start: 04-17-2024 Hepatitis B virus surface Ab [Presence] in Serum [facility] Start: 04-17-2024 [facility] Start: 10-28-2022 [facility] Start: 01-30-2020 Influenza vaccination INFLUENZA (#1) [facility] Start: 2018 PAP TESTING PAP TESTING [facility] Start: 08-28-2015 CHLAMYDIA SCREENING (18-24) CHLAMYDIA SCREENING (18-24) [facility] Start: 08-28-2015 GC (GONORRHEA) SCREE ELMER (18-24) GC (GONORRHEA) SCREENING (18-24) [facility] Start: 08-28-2015 HEPATITIS C SCREENING HEPATITIS C SC REENING [facility] Start: 08-28-2015 HIV SCREENING HIV SCREENING [facility] Bacteria identified in Urine by Culture Urine culture Microbiology Routine Missed menses Ordered: 03/16/2025 [facility] Comment on above: Ordered: 03/16/2025 CBC W Auto Different ial panel -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 colaou smear for cervical canc Chief Complaint Z77.21 Z12.4 K51.90 Ulcerative Colitis Chief Complaint Admit Date ulcerative colitis April 17, 2024 1:10pm K51.919 R19.7 April 17, 2024 1:51pm Reason for Visit Admit Date Ulcerative colitis April 17, 2024 1:10pm Chief Complaint Admit Date Amb Documentation August 24, 2024 11: 39am pap/AWV September 28, 2024 10:36a m Reason for Visit Admit Date Well adult exam September 28, 2024 10:36a m Chief Complaint Admit Date Amb Documentation August 24, 2024 11: 39am pap/AWV September 28, 2024 10:36a m UC September 28, 2024 1:09pm Reason for Visit Admit Date Depression September 28, 2024 10:36a m Well adult exam September 28, 2024 10:36a m Ulcerative colitis September 28, 2024 1:09pm Chief Complaint Admit Date Amb Documentation August 24, 2024 11: 39am pap/AWV September 28, 2024 10:36a m UC September 28, 2024 1:09pm K51.919 October 19, 2024 7:21a m Chief Complaint Admit Date Amb Documentation August 24, 2024 11: 39am pap/AWV September 28, 2024 10:36a m UC September 28, 2024 1:09pm K51.919 October 19, 2024 7:21a m Congestion, ear pain October 31, 2024 4:05 pm Additional Source Comments INFORMATION SOURCE (unrecogn ized section and content) DATE CREATED AUTHOR 12/23/2018 [employer] DATE CREATED AUTHOR AUTHOR'S ORGANIZ ATION 06/05/2019 [facility] DATE CREATED AUTHOR AUTHOR'S ORGANIZ ATION 09/13/2019 [facility] DATE CREATED AUTHOR AUTHOR'S ORGANIZ ATION 03/19/2020 [facility] DATE CREATED AUTHOR AUTHOR'S ORGANIZ ATION 09/19/2021 [facility] DATE CREATED AUTHOR AUTHOR'S ORGANIZ ATION 02/14/2025 [facility] Source Comments (unrecognize d section and content) In the event this informatio n is protected by the Federal Confidentiality of Alcohol and Drug Abuse Patient Records regulations: The Federal rules restrict any use of the information to criminally investigate or prosecute any alcohol or drug abuse patient.[facility] Reason for Visit (unrecogniz ed section and content) Reason Comments Refill Request Reason Comments Amenorrhea Telephone Encounter - Moon Bonilla ([facility]) - 03/18/2020 3:15 PM EDT Miscellaneous Notes (unrecog nized section and content) Pharmacy faxed requesting the following refill. Patient's last appointment: with Kristy Hood APRN.ASSOCIATE SOFTWARE APPLICATION ENGINEER, ASSOCIATE SOFTWARE APPLICATION ENGINEER was 06/06/2019 for a follow up on her anxiety. Pending Prescriptions Disp Refills ESCITALOPRAM 10 MG TABLET 90 tablet 0 Sig: TAKE 1 TABLET BY MOUTH EVERY DAY ANTHONY: No Patient Phone numbers: [phone] (home) Request is for script(s) to be escript to pharmacy. Moon Bonilla CMA documented in this encounter Care Teams (unrecognized sec tion and content) Team Status: Active Member Role Status Sun Matute DO Primary Care Provider Active Team Status: Inactive Member Role Status Sun Matute DO Primary Care Provider Active Start: February 13, 2025 End: February 13, 2025 Addie Matute DO Attending Provider Active St art: February 13, 2025 End: February 13, 2025 Team Status: Active Member Role Status Sun Matute DO Primary Care Provider Active Start: August 24, 2024 KEARA Hatch Attending Provider Active S tart: August 24, 2024 Team Status: Inactive Member Role Status Sun aMtute DO Primary Care Provide r, Attending Provider Active Start: September 28, 2024 End: September 28, 2024 Team Status: Inactive Member Role Status Sun Matute DO Attending Provider Active Team Status: Inactive Member Role Status Sun Lemon MD Attending Provider Active Addie Matute DO Primary Care Provider Active Team Status: Inactive Member Role Status Sun Matute DO Primary Care Provider Active Rachel Lemon MD Attending Provider Active Team Status: Inactive Member Role Status Sun Matute DO Primary Care Provider Active Start: April 17, 2024 End: April 17, 2024 Alem Peter , DO Attending Provider Active St art: April 17, 2024 End: April 17, 2024 Team Status: Inactive Member Role Status Sun Matute DO Primary Care Provider Active Start: September 28, 2024 End: September 28, 2024 Alem L Ly , DO Attending Provider Active St art: September 28, 2024 End: September 28, 2024 Team Status: Inactive Member Role Status Sun Matute DO Primary Care Provider Active Start: October 19, 2024 End: October 19, 2024 Alem Peter DO Attending Provider Active St art: October 19, 2024 End: October 19, 2024 Team Status: Inactive Member Role Status Dates Addie Matute DO Primary Care Provider Active Start: October 31, 2024 End: October 31, 2024 Linda Randhawa APRN Attending Provider Active Start: October 31, 2024 End: October 31, 2024 General Forecaster Relationship Specialty Start Date End Date Addie Matute DO [address] [facility] [facility] [place] [address] PCP - General Family Medicine 03/16/25 Goals (unrecognized section and content) Goals may be documented in a n alternate section FOR RECORDS PERTAINING TO PATIENTS WHO ARE OR HAVE BEEN ENROLLED IN A CHEMICAL DEPENDENCY/SUBSTANCEABUSE PROGRAM, SOME INFORMATION MAY BE OMITTED. This clinical summary was aggregated from multiple sources. Caution should be exercised in using it in the provision of clinical care. This summary normalizes information from multiple sources, and as a consequence, information in this document may materially change the coding, format and clinical context of patient data. In addition, data may be omitted in some cases. CLINICAL DECISIONS SHOULD BE BASED ON THE PRIMARY CLINICAL RECORDS. [employer] provides no warranty or guarantee of the accuracy or completeness of information in this document.
--- OUTSIDE RECORDS SUMMARY | 2025-03-16 10:18 | XMS_ITS | Clinical Summary ---
Author Organization [facility] Address [address], [address] [place] [address] Care Team Providers Care Mold Design Engineer Name Role Phone Unavailable Primary Care Provider Unavailabl e Allergies No known active allergies Medications methotrexate (RHEUMATREX) 2.5 MG chemo tablet 08/14/19 16 Active naratriptan (AMERGE) 2.5 MG tablet 3 06/24/19 16 Active folic acid (FOLVITE) 1 MG tablet Take 1 mg by mouth daily Active inFLIXimab (REMICADE) 100 MG injection Infuse 5 mg/kg intravenously See Admin Instructions Active hyoscyamine (ANASPAZ;LEVSIN) 0.125 MG tablet Take 0.125 mg by mouth every 4 hours as needed for Cramping Active Mesalamine (LIALDA PO) Take by mouth Acti ve omeprazole (PRILOSEC) 10 MG capsule Take 10 mg by mouth daily Active lidocaine (XYLOCAINE) 2 % jellyIndications: Vulvar lesion Apply a small amount to affected area PRN using a cotton tipped applicator 1 Tube 04/08/20 16 Active clotrimazole-beta methasone (LOTRISONE) 1-0.05 % creamIndications: Vaginal yeast infection Apply topically 2 times daily. 1 Tube 04/15/20 16 Active norelgestromin-et hinyl estradiol (ORTHO EVRA) 150-35 MCG/24HRIndicatio ns:Encounter for initial prescription of transdermal patch hormonal contraceptive device Place 1 patch onto the skin once a week X 3 weeks then remove x 1 week. 3 patch 12 09/24/19 17 Active norelgestromin-et hinyl estradiol (XULANE) 150-35 MCG/24HR Place 1 patch onto the skin once a week 12 patch 3 11/20/19 17 Active valACYclovir (VALTREX) 500 MG tabletIndications :Genital herpes simplex, unspecified site TAKE 1 TABLET BY MOUTH DAILY 90 tablet 1 04/02/20 17 Active KAITLIB FE 0.8-25 MG-MCG CHEWIndications:E ncounter for surveillance of contraceptive pills CHEW 1 TABLET BY ORAL ROUTE EVERY DAY 28 tablet 09/04/19 18 Active Family History Medical History Relation Name Comments Asthma Brother Asthma Mother Migraines Mother Relation Name Status Comments Brother Father Alive Maternal Grandfather Maternal Grandmother Alive Mother Alive Paternal Grandfather Paternal Grandmother Alive Social History Tobacco Use Types Packs/Day Years Used Date Smoking Tobacco: Never Smokeless Tobacco: Never Alcohol Use Standard Drinks/Week Comments Yes 10 (1 standard drink = 0.6 oz pu re alcohol) Comments No Sex and Gender Information Value Date Recorded Sex Assigned at Not on file Legal Sex Female 11:13 PM EDT Gender Identity Not on file Sexual Orientation Not on file Last Filed Vital Signs Vital Sign Reading Time Taken Comments Blood Pressure 140/78 08/20/2016 4:37 PM EDT Pulse 83 08/20/2016 4:37 PM EDT Temperature - - Respiratory Rate - - Oxygen Saturation - - Inhaled Oxygen Concentration - - Weight 73.5 kg (162 lb) 08/20/2016 4:37 PM EDT Height 181.6 cm (5' 11.5 ) 08/20/2016 4:37 PM ED T Body Mass Index 22.28 08/20/2016 4:37 PM EDT Plan of Treatment Not on file Insurance
--- OUTSIDE RECORDS SUMMARY | 2025-03-16 10:18 | XMS_ITS | Encounter Summary ---
Author Organization [facility] Address [address] [place] [address] Care Team Providers Care Compliance Coordinator Name Role Phone Addie Matute DO Primary Care Provider [phone] Encounter Details Date Type Department Care Team (Late st Contact Info) Description 10/27/2022 Abstract [facility] [address] [place] [address] Roberto Paieg MD [address] [place] [address] Social History Tobacco Use Types Packs/Day Years Used Date Smoking Tobacco: Never Tobacco Cessation:Counseling Given: Not Answered Alcohol Use Standard Drinks/Week Comments Yes 6 [...] 1:40 PM EST Routine [facility] [address] [place] [id number] Pablo Hall DO [address] [place] [address] documented as of this encounter Visit Diagnoses Not on filedocumented in this encounter Care Teams Compliance Coordinator Relationship Specialty Start Date End Date Addie Matute DO [address] [facility] [place] [phone] PCP - General Family Medicine 03/16/25 documented as of this encounter
--- OUTSIDE RECORDS SUMMARY | 2025-03-16 10:18 | XMS_ITS | Clinical Summary ---
Author Organization [facility] Address [address] [place] [place] [address] Care Team Providers Care Transplant Case Manager Name Role Phone Addie Matute DO Primary Care Provider [phone] Allergies No known active allergies Medications No known medications Encounters Date Type Department Care Team Description 03/16/2025 9:00 [place] [id number] GA: [id number] 03/16/2025 8:30 AM EDT [place] [address] Missed menses; Positive urine test ([facility]) 03/16/2025 [place] [address] Pablo Hall DO 03/15/2025 Travel from Last 3 Months Family History Medical History Relation Name Comments No Known Problems Brother 2 brothers Relation Name Status Comments Brother Father Alive Mother Alive Social History Tobacco Use Types Packs/Day [...] oz) 03/16/2025 9:57 A M EDT Height 184.8 cm (6' 0.75 ) 05/02/2019 12:[address] Body Mass Index 22.33 05/02/2019 12:00 PM EST Plan of Treatment Upcoming Encounters Date Type Department Care Team (Late st Contact Info) Description 04/10/2025 1:40 PM EST Routine [facility] [address] [place] [phone] IsabelPablo day DO [address] [place], [place] [id number] Procedures Procedure Name Priority Date/Time Associated Diagnosis Comments POCT , URINE Routine 03/16/2025 10:02 AM EDT Missed menses POCT URINALYSIS DIPSTICK Routine 03/16/2025 10:02 AM EDT Missed menses from Last 3 Months Results * (ABNORMAL) POCT , urine manually resulted (03/16/2025 10:02 AM EDT) Preg Test, Ur Positive Negative Urine 03/16/2025 10:0 2 AM EDT Pablo [...] Urine 03/16/2025 10:0 2 AM EDT Pablo Isabel DO POINT OF CARE TEST ENTER/EDIT OR DERABLES Final Result from Last 3 Months Insurance [employer] Care Teams Transplant Case Manager Relationship Specialty Start Date End Date Addie Matute DO [address] [facility] [place] [phone] PCP - General Family Medicine 03/16/25
--- OUTSIDE RECORDS SUMMARY | 2025-03-16 10:18 | XMS_ITS | Encounter Summary ---
Author Organization [facility] Address [address], [address] [place] [address] Care Team Providers Care Cloth Neutralizer Name Role Phone Unavailable Primary Care Provider Unavailabl e Reason for Visit * Reason Comments Medication Refill Encounter Details Date Type Department Care Team (Late st Contact Info) Description 11/12/2017 Refill [facility] BINDING END STITCHER [address] [place] [address] PodCami polanco APRN - CNM [address] [place] [address] Medication Refill Social History Tobacco Use Types Packs/Day Years [...] as of this encounter Plan of Treatment Not on file documented as of this encounter Visit Diagnoses Diagnosis Genital herpes simplex, unspecified site documented in this encounter
--- OUTSIDE RECORDS SUMMARY | 2025-03-16 10:18 | XMS_ITS | Patient Health Record ---
Author Organization [facility] ialists Address [address] [address] Care Team Providers Care Animal Ride Attendant Name Role Phone Kay Moseley Primary Care Provider Reason For Referral No Information Medications Medication SIG (Take, Route, Frequency, Duration) Notes Start Date End Date Status Dymista 137-50 MCG/ACT 1 spray(s) intranasally 2 times a day 09/05/2015 Active Generess FE 0.8-25 MG-MCG 1 tab(s) chewed once a day Active Fluticasone Propionate 50 MCG/ACT 2 intranasally once a day 09/17/2016 Active Mesalamine 4 G/60 ML 60 ML RECTALLY ONCE A DAY (AT BEDTIME) *Please review and pick correct strength-formulati on from Mochila options. If intended option is not shown, discontinue and re-order from Quick Search* Active Folic Acid 1 MG 1 tab(s) orally once a day Active Naratriptan HCl 2.5 MG 1 tab(s) orally once a day prn headache, may repeat x1 after 4 hrs prn 06/24/2015 Active Nasacort Allergy 24HR *Please review and pick correct strength-formulati on from [facility] options. If intended option is not shown, discontinue and re-order from Quick Search* Active ZyrTEC Allergy 10 MG 1 tab(s) orally onc e a day Active Mucinex 600 MG 1 tab(s) orally every 12 hours Active Hyoscyamine Sulfate 0.125 MG 1 tab(s) orally 4 times a day Active Folic Acid 0.8 MG 1 tablet by mouth once daily Active Methotrexate Sodium 5 MG 5 tab(s) orally once a week Active Advair Diskus 250-50 MCG/ACT 1 puff(s) inhaled 2 times a day 06/24/2015 Active Remicade INFUSION EVERY 6-8 WEEKS *Please review and pick correct strength-formulati on from Medispan options. If intended option is not shown, discontinue and re-order from Quick Search* Active Flonase Allergy Relief 50 MCG/ACT 2 spray(s) intranasally once a day 06/20/2014 Active Zinc 50 MG 1 tab(s) orally once a day Active Vitamin D3 50 MCG (1999 UT) 1 cap(s) orally once a day Active Immunizations Vaccine Route Administration Date Status Comme nts TB intradermal SC Subcutaneous 03/27/2014 Administered Menactra IM Intramuscular 01/23/2016 Administered Fluarix (quadrivalent) Not MCR IM Intramuscular 03/27/2014 Administered Social History Tobacco Use: Social History Observation Description Date Details (start date - stop date) Never Smoker NA - NA Tobbaco Use or Smoking Question Answer Notes Are you a: Never Smoker Sexual Hx: Question Answer Notes Had sex in past 12 months (vaginal, oral or anal )? No Have you ever had an STD? No Alcohol Screening: Question Answer Notes Did you have a drink contain ing alcohol in the past year? Yes How often did you have a dri nk containing alcohol in the past year? Two to four times a month (2 points) How many drinks did you have on a typical day when drinking in the past year? 1 or 2 (0 points) How often did you have 6 or more drinks on one occasion in the past year? Never (0 points) Points 2 Interpretation Negative Problems Problem Type SNOMED Code ICD Code Onset Dates Problem Status W/U Status Risk Notes Problem Ulcerative colitis (49986587) Ulcerative colitis, unspecified (556.9) Active confirmed Problem Ulcerative colitis (75270045) Ulcerative colitis with other complication, unspecified location (K51.918) Active confirmed Plan Of Treatment Pending Test Test Name Order Date Kenalog 09/17/2016 PPD/TB 03/27/2014 varicella IgG 03/27/2014 hepatitis panel 03/27/2014 CBC/DIFF 11/03/2016 COMP METAB 11/03/2016 LIPID CABAN 11/03/2016 T4 FREE 11/03/2016 Menactra 01/23/2016 Vitamin D 25 Hydroxy 11/03/2016 TSH 11/03/2016 Insurance Providers Payer Name Payer Address Payer Phone Subscriber Number Group Number Insured Name Patient Relationship to Insured Coverage Start Date Coverage End Date [facility] [address] [place] [address] [id number] Shirin Alcala Child - Insured has Financial Responsibility Medications Administered Medication Instructions Date of Administration Dosage Notes Kenalog 09/17/2016 1.0 mL Medical (General) History Medical History History ICD Code Ulcerative colotis Surgical History Surgery Date(Month/Year) No surgical history disclosed Hospitalization History Reason Date(Month/Year) No hospitalizations disclosed colitis october 2013
--- OUTSIDE RECORDS SUMMARY | 2025-03-16 10:18 | XMS_ITS | Encounter Summary ---
Author Organization [facility] Address [address], [address] [place] [address] Care Team Providers Care Special Officer Automat Name Role Phone Unavailable Primary Care Provider Unavailabl e Reason for Visit * Reason Comments Medication Refill Encounter Details Date Type Department Care Team (Late st Contact Info) Description 09/04/2016 Refill [facility] PHP LAMP DEVELOPER [address] [place] [address] PodCami polanco APRN - CNDelphine [address] [place] [address] Medication Refill Social History Tobacco Use Types [...] as of this encounter Visit Diagnoses Diagnosis Encounter for surveillance of contraceptive pills Surveillance of previously prescribed contraceptive pill documented in this encounter
[2025-03-16 11:13] LABS: Hematocrit 36.9 % (36.0-48.0); Hemoglobin 12.6 g/dL (12.0-16.0); Immature Granulocytes Abs Auto 0.01 10^3/uL (0.00-0.03); Immature Granulocytes Pct Auto 0.1 % (0.0-0.5); Lymphocytes Absolute Auto 2.2 10^3/uL (1.2-3.8); Mean Corpuscular HGB Conc 34.1 g/dL (29.9-35.2); Mean Corpuscular Hemoglobin 30.1 pg (26.7-34.0); Mean Corpuscular Volume 88.1 fL (81.0-99.0); Platelet Count 271 10^3/uL (150-450); Red Blood Count 4.19 10^6/uL (4.20-5.40); White Blood Count 6.9 10^3/uL (4.0-11.0)
[2025-03-16 11:39] LABS: Cannabinoid Screen Urine NEGATIVE (NEGATIVE); Methamphetamines Screen Urine NEGATIVE (NEGATIVE); Tricyclic Antidepressant Urine NEGATIVE (NEGATIVE)
[2025-03-17 07:13] LABS: Rubella Antibodies, IgG <0.90 index (Immune >0.99)
[2025-03-17 11:08] LABS: Rapid Plasma Reagin, Quant Non Reactive titer (NonRea<1:1)
== END 2025-03-16 10:12 | disposition home or self-care (01) ==
PROVIDERS: PCP Family Medicine; Visit Provider Obstetrics & Gynecology
DX: Z34.01 Encounter for supervision of normal first pregnancy, first trimester (principal); N92.6 Irregular menstruation, unspecified
CPT/HCPCS: 36415; 80307; 83036; 85025; 86592; 86762; 86803; 86850; 86900; 86901; 87086; 87340; 87389

== ENCOUNTER 2025-04-10 19:31 | Outpatient (REF) | payer OTHER, SELFPAY ==
--- OUTSIDE RECORDS SUMMARY | 2025-04-10 13:40 | XMS_ITS | Encounter Summary ---
Author Organization [facility] Address [address] [place] [address] Care Team Providers Care Finished Cigar Maker Name Role Phone Addie Matute DO Primary Care Provider [phone] Reason for Visit * ReasonCommentsRoutine Visit Encounter Details DateTypeDepartmentCare Team (Latest Contact Info)Kpelnlhdrdu20/11/2025 1:40 PM ESTRoutine [facility] [address] [place] [id number] Pablo Hall DO [address] [place], [place] [id number] 17 weeks gestation of ([facility]); Second trimester ([facility]); Screening, , for anatomic survey ([facility]); Well woman exam with routine gynecological exam; Exposure to STD; Vaginal discharge; Yeast infection Social History Tobacco UseTypesPacks/DayYears UsedDateSmoking Tobacco: NeverAlcohol UseStandard Drinks/WeekCommentsYes6 (1 standard drink = 0.6 oz pure alcohol) Estimated Date of QfjurusaZxlmytuoEbb11/18/2026Based on UltrasoundSex and Gender InformationValueDate RecordedSex Assigned at BirthNot on fileLegal SexFemale 08/12/2022 9:55 PM EDTGender IdentityNot on fileSexual OrientationNot on file documented as of this encounter Last Filed Vital Signs Vital SignReadingTime TakenCommentsBlood Wymjjbeb95/6011/03/2025 1:48 PM EST Pulse--Temperature--Respiratory Rate--Oxygen Saturation--Inhaled Oxygen Concentration--Dqukzc52.6 kg (179 lb 12.8 oz)04/10/2025 1:48 PM ESTHeight--Body Mass Index23.8905/02/2019 12:00 PM ESTdocumented in this encounter Plan of Treatment DateTypeDepartmentCare Team (Latest Contact Info)Yqtxxjjplip76/02/2025 2:30 PM ESTAncillary Procedure [facility] [address] [phone] 05/09/2025 11:20 AM ESTRoutine [facility] [address] [place] [phone] Pablo Hall DO [address] [place], [place] [id number] NameTypePriorityAssociated DiagnosesOrder ScheduleUS OB 14+ weeks anatomy scan ImagingRoutine Screening, , for anatomic survey ([facility]) Expected: 04/10/2025, Expires: 07/11/2025SURESWAB(R) ADVANCED VAGINITIS PLUS, TMAPathology and CytologyRoutine Vaginal discharge Ordered: 04/10/2025HLAMYDIA TRACHOMATIS (GENITO/STI)LabRoutine Exposure to STD Ordered: 04/10/2025Neisseria gonorrhea DNA probe, directLabRoutine Exposure to STD Ordered: 04/10/2025Pap SmearPathology and CytologyRoutine Well woman exam with routine gynecological exam Ordered: 5Alpha fetoprotein, maternalLabRoutine 17 weeks gestation of ([facility]) Second trimester ([facility]) Expected: 04/10/2025 (Approximate), Expires: 06/10/2025documented as of this encounter Procedures Procedure NamePriorityDate/TimeAssociated DiagnosisCommentsPOCT URINALYSIS FJXNAGSDYvuecth77/11/2025 2:02 PM EST 17 weeks gestation of ([facility]) Second trimester ([facility]) documented in this encounter Results * POCT urinalysis dipstick manually resulted (04/10/2025 2:02 PM EST)Component ValueRef RangeTest MethodAnalysis TimePerformed AtPathologist SignatureColor, UAColorlessClarity, UAClearGlucose, UANegativeNegative - 2000(110) ++++ mg/dL Bilirubin, UANegativeNegative - 4(70) +++ mg/dLKetones, UANegativeNegative - 160(16) ++++ mg/dLSpec Grav, UA1.0051 - 1.03Blood, UANegativeNegative - 50 Gary/mcLpH, UA6.05 - 9Protein, UANegativeNegative - 2000(20) ++++ mg/dL Urobilinogen, UA1.00.2 - 12 mg/dLLeukocytes, UANegativeNegative - 500+++ Abundio/mcLNitrite, UANegativeNegative - PositiveSpecimen (Source)Anatomical Location / LateralityCollection Method / VolumeCollection TimeReceived Time Urine04/10/2025 2:02 PM EST Narrative Authorizing ProviderResult TypeResult StatusCorey Isabel DOPOINT OF CARE TEST ENTER/EDIT ORDERABLESFinal Result documented in this encounter Visit Diagnoses Diagnosis 17 weeks gestation of ([facility]) Second trimester ([facility]) state, incidental Screening, , for anatomic survey ([facility]) Encounter for anatomic survey Well woman exam with routine gynecological exam Routine gynecological examination Exposure to STD Vaginal discharge Leukorrhea, not specified as infective Yeast infection documented in this encounter Care Teams Team MemberRelationshipSpecialtyStart DateEnd Date Addie Matute DO [address] [place] [address] PCP - GeneralFamily Aqkzzfcv88/17/25documented as of this encounter
--- OUTSIDE RECORDS SUMMARY | 2025-04-10 19:34 | XMS_ITS | Clinical Summary ---
Author Organization [facility] Healthcare Address [address] [place] [address] Care Team Providers Care Life Skills Trainer Name Role Phone Addie Matute DO Primary Care Provider [phone] Allergies No known active allergies Medications MedicationSigDispense QuantityRefillsLast FilledStart DateEnd DateStatus escitalopram (Lexapro) 20 MG tablet Take 20 mg by mouth DailyActive buPROPion XL (Wellbutrin XL) 150 MG 24 hr tablet Take 150 mg by mouth in the morning.5Active vedolizumab (Entyvio) 300 MG injection Infuse 300 mg into a venous catheter 1 (one) time5Active terconazole (Terazol 7) 0.4 % vaginal cream Indications:Vaginal discharge,Yeast infectionInsert 1 applicator into the vagina at bedtime for 7 days 45 g 5Active Encounters DateTypeDepartmentCare UvwpOblakuerlts26/11/2025 1:40 [place] [phone] Pablo Hall DO 17 weeks gestation of ([facility]); Second trimester ([facility]); Screening, , for anatomic survey ([facility]); Well woman exam with routine gynecological exam; Exposure to STD; Vaginal discharge; Yeast nwykggftb20/11/2025[place] [address] Pablo Hall, DO 5Bamboo flowsheet [facility] [address] [facility] [place] [phone] Pablo Hall, DO 04/09/20255330Alsufo05/17/2025 9:00 AM EDTInitial [facility] [address] [facility] [phone] [place]: [id number] 8:30 AM EDTAncillary Procedure [facility] [address] [facility] [phone] Missed menses; Positive urine test ([facility])03/16/2025linisync Result Encounter [facility] External Department Unsolicited Pablo Hall, DO 03/16/2025bstract [facility] [address] [facility] [phone] Pablo Hall, DO 03/15/2025Travelfrom Last 3 Months Family History Medical HistoryRelationNameCommentsNo Known ProblemsBrother2 brothersRelation NameStatusCommentsBrotherFatherAliveMotherAlive Social History Tobacco UseTypesPacks/DayYears UsedDateSmoking Tobacco: Never Tobacco Cessation:Counseling Given: Not Answered Alcohol UseStandard Drinks/WeekCommentsYes6 (1 standard drink = 0.6 oz pure alcohol)Estimated Date of OogmavujZpeomjkzTto21/18/2026ased on UltrasoundSex and Gender InformationValueDate RecordedSex Assigned at BirthNot on fileLegal GrgEjbmin22/15/2023 9:55 PM EDTGender IdentityNot on fileSexual OrientationNot on file Last Filed Vital Signs Vital SignReadingTime TakenCommentsBlood Tczkqogl27/6004/10/2025 1:48 PM EST Pulse--Temperature--Respiratory Rate--Oxygen Saturation--Inhaled Oxygen Concentration--Fdwjax52.6 kg (179 lb 12.8 oz)04/10/2025 1:48 PM ADUDylnld710.8 cm (6' 0.75 )05/02/2019 12:00 PM ESTBody Mass Index23.8905/02/2019 12:00 PM EST Plan of Treatment DateTypeDepartmentCare Team (Latest Contact Info)Fsdagprzxol21/02/2025 2:30 PM ESTAncillary Procedure [facility] [address] [place] [address] [place] [phone] 05/09/2025 11:20 AM ESTRoutine [facility] [address] [place] [address] [place] [phone] Pablo Hall DO [address] [place] [address] [place] [address] Procedures Procedure NamePriorityDate/TimeAssociated DiagnosisCommentsCULTURE, URINE, YKTDROOJjvjxxi15/11/2025 3:57 PM EST Missed menses POCT URINALYSIS RKSHAGTYEbpmsfd16/11/2025 2:02 PM EST 17 weeks gestation of ([facility]) Second trimester ([facility]) HCV ANTIBODY RFX TO QUANT ZFRWytgyvw62/17/2025 10:31 AM EDT ALL RUBELLA IGG SFHyrsayw54/17/2025 10:31 AM EDT HBSAG RXBQBHWisdxto77/17/2025 10:31 AM EDT RAPID PLASMA REAGIN, ETDQAQriqjsi34/17/2025 10:31 AM EDT HIV AB/P24 AG WITH OFJIUIXbrnptg23/17/2025 10:31 AM EDT MLR HEMOGLOBIN G0IEkholld77/17/2025 10:31 AM EDT ALL TYPE AND GFNWNAZnejmyj64/17/2025 10:31 AM EDT ALL CBC WITH AUTO MWTNVqfltll89/17/2025 10:31 AM EDT [facility] DRUG SCREEN RAPID (URINE)Griozzs9103/16/2025 10:22 AM EDT POCT , KPAJOOawoijq54/17/2025 10:02 AM EDT Missed menses POCT URINALYSIS SNTDFQWMRxydtdi10/17/2025 10:02 AM EDT Missed menses OB OWSJGEVFJNGBLpidbtz80/17/2025 9:00 AM EDT Missed menses Positive urine test ([facility]) from Last 3 Months Results * Urine culture (04/10/2025 3:57 PM EST)Specimen (Source)Anatomical Location / LateralityCollection Method / VolumeCollection TimeReceived TimeUrineUrine specimen obtained by clean catch procedure / Unknown Narrative Authorizing ProviderResult TypeResult StatusCorey Isabel ESCALERA MICROBIOLOGY - GENERAL ORDERABLESFinal ResultPerforming OrganizationAddressCity/State/ZIP Code Phone Number EXTERNAL LAB * POCT urinalysis dipstick manually resulted (04/10/2025 2:02 PM EST) Only the most recent of2 resultswithin the time period is included. ComponentValueRef RangeTest MethodAnalysis TimePerformed AtPathologist Signature Color, UAColorlessClarity, UAClearGlucose, UANegativeNegative - 1999(110) ++++ mg/dLBilirubin, UANegativeNegative - 4(70) +++ mg/dLKetones, UANegativeNegative - 160(16) ++++ mg/dLSpec Grav, UA1.0051 - 1.03Blood, UANegativeNegative - 50 Gary/mcLpH, UA6.05 - 9Protein, UANegativeNegative - 2000(20) ++++ mg/dL Urobilinogen, UA1.00.2 - 12 mg/dLLeukocytes, UANegativeNegative - 500+++ Abundio/mcL Nitrite, UANegativeNegative - PositiveSpecimen (Source)Anatomical Location / LateralityCollection Method / VolumeCollection TimeReceived MptbPudbt75/11/2025 2:02 PM EST Narrative Authorizing ProviderResult TypeResult StatusCorey Isabel DOPOINT OF CARE TEST ENTER/EDIT ORDERABLESFinal Result * HBSAG SCREEN (03/16/2025 10:31 AM EDT)ComponentValueRef RangeTest Method Analysis TimePerformed AtPathologist SignatureHBSAG SCREENNegativeNegativeTBH Comment: Performed at: ?? - [address] ??[id number] Devops Engineer: Jefferson Evnagelista PhD, Phone: ??[phone] Specimen (Source)Anatomical Location / LateralityCollection Method / Volume Collection TimeReceived Time03/16/2025 10:31 AM EDT1 10:36 AM EDT Narrative [facility] - 03/17/2025 11:08 AM EDT Authorizing ProviderResult TypeResult StatusCorey Isabel DOLAB BLOOD ORDERABLES Final ResultPerforming OrganizationAddressCity/State/ZIP CodePhone Number [facility] * RAPID PLASMA REAGIN, QUANT (03/16/2025 10:31 AM EDT)ComponentValueRef Range Test MethodAnalysis TimePerformed AtPathologist SignatureRAPID PLASMA REAGIN, QUANTNon ReactiveNonRea<1:1 titerTBHComment: Please Note: This test does not meet current guidelines for screening and diagnosis of syphilis. This test is intended for following treatment response in patients being treated for syphilis infection. To screen for syphilis infection, a reflex cascade that includes both RPR and a treponema-specific assay should be utilized, such as Treponema pallidum (Syphilis) Screening [place] (189447) or Rapid Plasma Reagin (RPR) Test With Reflex to Quantitative RPR and Confirmatory Treponema pallidum Antibodies (124844). Performed at: ??[facility] [employer] ??[id number] Devops Engineer: Jefferson Evangelista PhD, Phone: ??[phone] Specimen (Source)Anatomical Location / LateralityCollection Method / Volume Collection TimeReceived Time10/ 10:31 AM EDT1 10:36 AM EDT Narrative [facility] - 03/17/2025 11:08 AM EDT Authorizing ProviderResult TypeResult StatusCorey Isabel DOLAB BLOOD ORDERABLES Final ResultPerforming OrganizationAddressty/State/ZIP CodePhone Number [facility] * HIV AB/P24 AG WITH REFLEX (03/16/2025 10:31 AM EDT)ComponentValueRef RangeTest MethodAnalysis TimePerformed AtPathologist SignatureHIV AB/P24 AG SCREENNon ReactiveNon ReactiveTBHComment: HIV-1/HIV-2 antibodies and HIV-1 p24 antigen were NOT detected. There is no laboratory evidence of HIV infection. HIV Negative Performed at: ??[facility] [employer] ??[id number] Devops Engineer: Jefferson Evangelista PhD, Phone: ??[phone] Specimen (Source)Anatomical Location / LateralityCollection Method / Volume Collection TimeReceived Time03/16/2025 10:31 AM EDT1 10:36 AM EDT Narrative [facility] - 03/17/2025 5:07 AM EDT Authorizing ProviderResult TypeResult StatusCorey Isabel DOLAB BLOOD ORDERABLES Final ResultPerforming OrganizationAddressCity/State/ZIP CodePhone Number [facility] * HCV ANTIBODY RFX TO QUANT PCR (03/16/2025 10:31 AM EDT)ComponentValueRef Range Test MethodAnalysis TimePerformed AtPathologist SignatureHCV ABNon ReactiveNon ReactiveTBHINTERPRETATION:Comment.TBHComment: Not infected with HCV unless early or acute infection is suspected (which may be delayed in an immunocompromised individual), or other evidence exists to indicate HCV infection. Performed at: ??[facility] [employer] ??[id number] Devops Engineer: Jefferson Evangelista PhD, Phone: ??[phone] Specimen (Source)Anatomical Location / LateralityCollection Method / Volume Collection TimeReceived Time03/16/2025 10:31 AM EDT1 10:36 AM EDT Narrative [facility] - 03/17/2025 7:13 AM EDT Authorizing ProviderResult TypeResult StatusCorey Isabel DOLAB BLOOD ORDERABLES Final ResultPerforming OrganizationAddressCity/State/ZIP CodePhone Number [facility] * MLR HEMOGLOBIN A1C (03/16/2025 10:31 AM EDT)ComponentValueRef RangeTest Method Analysis TimePerformed AtPathologist SignatureGLYCOHEMOGLOBIN A1C5.04.5 - 6.2 %TBHComment: ADA RECOMMENDED LIMIT 4.0 - 6.0 ADA THERAPEUTIC TARGET < 7.0 ACTION SUGGESTED > 7.0 ESTIMATED AVERAGE IHYJQAE69ph/dLTBHSpecimen (Source)Anatomical Location / LateralityCollection Method / VolumeCollection TimeReceived Time03/16/2025 10:31 AM EDT1 10:36 AM EDT Narrative [facility] - 03/16/2025 3:21 PM EDT Authorizing ProviderResult TypeResult StatusCorey Isabel DOCLINISYNCFinal Result Performing OrganizationAddressCity/State/ZIP CodePhone Number [facility] * ALL TYPE AND SCREEN (03/16/2025 10:31 AM EDT)ComponentValueRef RangeTest MethodAnalysis TimePerformed AtPathologist SignatureBLOOD TYPEA PositiveTBH ANTIBODY SCREENNEGATIVETBHSpecimen (Source)Anatomical Location / Laterality Collection Method / VolumeCollection TimeReceived Time03/16/2025 10:31 AM EDT 03/16/2025 10:36 AM EDT Narrative [facility] - 03/16/2025 2:50 PM EDT [facility] , Authorizing ProviderResult TypeResult StatusCorey Isabel DOCLINISYNCFinal Result Performing OrganizationAddGeisinger St. Luke's Hospitalty/State/ZIP CodePhone Number [facility] * (ABNORMAL) ALL RUBELLA IGG AB (03/16/2025 10:31 AM EDT)ComponentValueRef Range Test MethodAnalysis TimePerformed AtPathologist SignatureRUBELLA ANTIBODIES, IGG<0.90(A)Immune >0.99 indexTBHComment: Non-immune <0.90 ?Equivocal ??0.90 - 0.99 Immune >0.99 Performed at: ??[facility] - [facility] [address] ??[id number] Devops Engineer: Jefferson Evangelista PhD, Phone: ??[phone] Specimen (Source)Anatomical Location / LateralityCollection Method / Volume Collection TimeReceived Time03/16/2025 10:31 AM EDT1 10:36 AM EDT Narrative [facility] - 03/17/2025 7:13 AM EDT Authorizing ProviderResult TypeResult StatusCorey Isabel DOCLINISYNCFinal Result Performing OrganizationAddressCity/State/ZIP CodePhone Number [facility] * (ABNORMAL) ALL CBC WITH AUTO DIFF (03/16/2025 10:31 AM EDT)ComponentValueRef RangeTest MethodAnalysis TimePerformed AtPathologist SignatureTBH WBC6.94.0 - 11.0 10 3/uLTBHTBH RBC4.19(L)4.20 - 5.40 10 6/uLTBHTBH HGB12.612.0 - 16.0 g/dL TBHTBH HCT36.936.0 - 48.0 %TBHTBH MCV88.181.0 - 99.0 fLTBHTBH MCH30.126.7 - 34.0 pgTBHTBH MCHC34.129.9 - 35.2 g/dLTBHTBH RDW12.311.0 - 15.0 %TBHTBH MVV515 150 - 450 10 3/uLTBHTBH MPV8.9(L)9.5 - 13.5 fLTBHNEUTROPHILS PERCENT AUTO59.7 43.0 - 75.0 %TBHLYMPHOCYTES PERCENT AUTO31.220.5 - 60.0 %TBHMONOCYTES PERCENT AUTO7.51.7 - 12.0 %TBHTBH EO %0.90.9 - 7.0 %TBHBASOPHILS PERCENT AUTO0.60.2 - 2.0 %TBHIMMATURE GRANULOCYTES PCT AUTO0.10.0 - 0.5 %TBHNEUTROPHILS ABSOLUTE AUTO4.11.4 - 6.5 10 3/uLTBHLYMPHOCYTES ABSOLUTE AUTO2.21.2 - 3.8 10 3/uLTBH MONOCYTES ABSOLUTE AUTO0.50.3 - 0.8 10 3/uLTBHTBH EO #0.10.0 - 0.7 10 3/uLTBH BASOPHILS ABSOLUTE AUTO0.00.0 - 0.1 10 3/uLTBHIMMATURE GRANULOCYTES ABS AUTO 0.010.00 - 0.03 10 3/uLTBHSpecimen (Source)Anatomical Location / Laterality Collection Method / VolumeCollection TimeReceived Time03/16/2025 10:31 AM EDT 03/16/2025 10:36 AM EDT Narrative [facility] - 03/16/2025 11:16 AM EDT Authorizing ProviderResult TypeResult StatusCorey Isabel DOCLINISYNCFinal Result Performing OrganizationAddressCity/State/ZIP CodePhone Number [facility] * [facility] DRUG SCREEN RAPID (URINE) (03/16/2025 10:22 AM EDT)ComponentValueRef Range Test MethodAnalysis TimePerformed AtPathologist SignatureCANNABINOID SCREEN URINENEGATIVENEGATIVETBHPHENCYCLIDINE SCREEN URINENEGATIVENEGATIVETBHCOCAINE SCREEN URINENEGATIVENEGATIVETBHMETHAMPHETAMINES SCREEN URINENEGATIVENEGATIVE TBHOPIATE SCREEN URINENEGATIVENEGATIVETBHAMPHETAMINE SCREEN URINENEGATIVE NEGATIVETBHBENZODIAZEPINES SCREEN URINENEGATIVENEGATIVETBHTRICYCLIC ANTIDEPRESSANT URINENEGATIVENEGATIVETBHMETHADONE SCREEN URINENEGATIVENEGATIVE TBHBARBITURATES SCREEN URINENEGATIVENEGATIVETBHOXYCODONE SCREEN URINENEGATIVE NEGATIVETBHBUPRENORPHINE SCREEN URINENEGATIVENEGATIVETBHComment: DRUG CLASS TEST SYSTEM CUT-OFF CONCENTRATIONS ARE FOLLOWS: AMP (Amphetamine): 500 ng/mL BAR (Barbiturates): 200 ng/mL BZO (Benzodiazepines): 150 ng/mL BUP (Buprenorphine): 10 ng/mL MARIBEL (Cocaine): 150 ng/mL mAMP (Methamphetamine): 500 ng/mL MTD (Methadone): 200 ng/mL OPI (Opiates): 100 ng/mL OXY (Oxycodone): 100 ng/mL PCP (Phencyclidine): 25 ng/mL THC (Cannabinoids): 50 ng/mL TCA (Trycyclic Antidepressants): 300 ng/mL Specimen (Source)Anatomical Location / LateralityCollection Method / Volume Collection TimeReceived Time03/16/2025 10:22 AM EDT1 10:36 AM EDT Narrative [facility] - 03/16/2025 11:39 AM EDT Authorizing ProviderResult TypeResult StatusCorey Isabel DOCLINISYNCFinal Result Performing OrganizationAddressCity/State/ZIP CodePhone Number [facility] * (ABNORMAL) POCT , urine manually resulted (03/16/2025 10:02 AM EDT) ComponentValueRef RangeTest MethodAnalysis TimePerformed AtPathologist SignaturePreg Test, UrPositiveNegativeSpecimen (Source)Anatomical Location / LateralityCollection Method / VolumeCollection TimeReceived TimeUrine 03/16/2025 10:02 AM EDT Narrative Authorizing ProviderResult TypeResult StatusCorey Isabel DOPOINT OF CARE TEST ENTER/EDIT ORDERABLESFinal Result * US OB transvaginal (03/16/2025 9:00 AM EDT)Anatomical RegionLateralityModality BodyUltrasoundSpecimen (Source)Anatomical Location / LateralityCollection Method / VolumeCollection TimeReceived Time03/16/2025 12:47 PM EDT Impressions 03/16/2025 1:07 PM EDT Findings consistent with a live intrauterine gestation, current sonographic age of 13 weeks and 6 days resulting in an estimated date of delivery of September 15, 2025. TRANSCRIBED BY: ? ELECTRONICALLY SIGNED BY: Carter Ho MD Narrative 03/16/2025 1:07 PM EDT FINDINGS: Single viable intrauterine . ??Posterior placenta. ?? heart rate 158 bpm. ??Estimatedgestational age 13 weeks and 6 days (MASOOD September 15, 2025). ??Cervix is closed, 4.4 cm length. ?? Alford-rump length 8 cm (14 weeks and 0 days), BPD 2.4 cm (14 weeks and 1 day), head 9.3 cm (14 weeks and 2 days), abdomen 7.0 cm (13 weeks and 4 days), femur 1.1 cm (13 weeks and 1 day). ?? Procedure Note Carter Ho MD - 03/16/2025 FINDINGS: Single viable intrauterine . Posterior placenta. heartrate 158 bpm. Estimated gestational age 13 weeks and 6 days (MASOOD 2025). Cervix is closed, 4.4 cm length. Alford-rump length 8 cm (14 weeks and 0 days), BPD 2.4 cm (14 weeks and 1day), head 9.3 cm (14 weeks and 2 days), abdomen 7.0 cm (13 weeks and 4days), femur 1.1 cm (13 weeks and 1 day). IMPRESSION: Findings consistent with a live intrauterine gestation, currentsonographic age of 13 weeks and 6 days resulting in an estimated date ofdelivery of September 15, 2025. TRANSCRIBED BY: ELECTRONICALLY SIGNED BY: Carter Ho MD Authorizing ProviderResult TypeResult StatusCorey Isabel DOIMG OB US PROCEDURES Final Result from Last 3 Months Insurance Care Teams Team MemberRelationshipSpecialtyStart DateEnd Date Addie Matute DO [address] [place] [phone] PCP - GeneralFamily Dptscpcq34/17/25
--- OUTSIDE RECORDS SUMMARY | 2025-04-10 19:35 | XMS_ITS | Encounter Summary ---
Author Organization [facility] Address [address] [place] [address] Care Team Providers Care Clammer Name Role Phone Addie Matute DO Primary Care Provider [phone] Encounter Details DateTypeDepartmentCare Team (Latest Contact Info)Uulphyhhccm14/10/2025Travel Social History Tobacco UseTypesPacks/DayYears UsedDateSmoking Tobacco: NeverAlcohol UseStandard Drinks/WeekCommentsYes6 (1 standard drink = 0.6 oz pure alcohol) Estimated Date of WsvnairwHcylpxsiFtj53/18/2026ased on UltrasoundSex and Gender InformationValueDate RecordedSex Assigned at BirthNot on fileLegal SexFemale 08/12/2022 9:55 PM EDTGender IdentityNot on fileSexual OrientationNot on file documented as of this encounter Plan of Treatment DateTypeDepartmentCare Team (Latest Contact Info)Cbpxbsputfn72/02/2025 2:30 PM ESTAncillary Procedure [facility] [address] [facility] [place] [address] 05/09/2025 11:20 AM ESTRoutine [facility] [address] [place] [address] Pablo Hall DO [address] [facility] [address] [place], [facility]11 documented as of this encounter Visit Diagnoses Not on filedocumented in this encounter Care Teams Team MemberRelationshipSpecialtyStart DateEnd Date Addie Matute DO [address] [facility] [place] [phone] PCP - GeneralFamily Wtvtzhan39/17/25documented as of this encounter
--- OUTSIDE RECORDS SUMMARY | 2025-04-10 19:35 | XMS_ITS | CCD ---
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 Ohvczwpter (Bld) [Mass/Vol]13.6 g/eCLivqij05.0-15.0[facility] Medical CenterComment on above:Performed By: #### CBC #### [address] [address] Fydradsh granulocytes/100 WBC (Bld)0.10 %NormalPremier Health Upper Valley Medical CenterComment on above:Result Comment: Immature Granulocyte Percent includes promyelocytes, myelocytes, and metamyelocytes. IG% > 1.0 indicates a left shift is present. With automated differentials, bands are included in the neutrophil count and not in the Immature Granulocyte Percent.Performed By: #### CBC #### [address] [address] Guoyochqfwi/100 WBC (Bld)57.2 %High24.0-44.0[facility] Medical CenterComment on above:Performed By: #### CBC #### [address] [address] WMP (RBC) [Entitic mass]30.2 qcSopjjp96.0-34.0[facility] Medical CenterComment on above:Performed By: #### CBC #### [address] [address] HYXW (RBC) [Mass/Vol]34.5 %Ywqpov15.0-37.0[facility] Comment on above:Performed By: #### CBC #### [address] [address] GPC (RBC) [Entitic vol]87.6 tMQsmmok48.0-100.0[facility] Medical CenterComment on above:Performed By: #### CBC #### [address] [address] Nayjbnavb/100 WBC (Bld)8.40 %High3.00-6.00[facility] Comment on above:Performed By: #### CBC #### [address] [address] Bxxegvoujqc (Bld) [#/Vol]2.0 10*3/[facility] Comment on above:Performed By: #### CBC #### [address] [address] Djquqqpiohf/100 WBC (Bld)28.4 %Low35.0-66.0[facility] Comment on above:Performed By: #### CBC #### [address] [address] [place] RBC/100 WBC (Bld) [Ratio]0.0 %Normal-1.0-0.0[facility] Medical CenterComment on above:Performed By: #### CBC #### [address] [address] Qlqhpmzs mean volume (Bld) [Entitic vol]9.0 [facility] CenterComment [facility] above:Result Comment: MPV is platelet range and age dependentPerformed By: #### CBC #### [address] [address] Zemqxueqk (Bld) [#/Vol]249 10*3/pSMjwrdc577-390JuaawPremier Health Upper Valley Medical CenterComment on above:Performed By: #### CBC #### [address] [address] KLY (Bld) [#/Vol]4.50 10E12/LNormal4.00-4.90Prem[facility] Medical CenterComment on above:Performed By: #### CBC #### [address] [address] ZBL (Bld) [#/Vol]6.9 10*3/uLNormal4.5-11.0[facility] Comment on above:Performed By: #### CBC #### [address] [address] [place] [address] ATNqd 24-37-6669XLO (Bld) [Velocity]6 mmNormAshtabula County Medical CenterComment on above:Performed By: #### JUDY #### [facility] [address] [place] [address] YLW (Bld) [Velocity]-----[facility] ColumbusComment on above:Result Comment: Male Female Child 0-13 Child 0-13 Adult 0- 9 Adult 0-20Performed By: #### SRATE #### [facility] [address] [place] [address] Fjajaskv Noteon [phone] Authentication Interface Message TextSubjective: Patient ID: Yari Alcala is a 23 y.o. female. The patient's reason for visit is ulcerative colitis. She is unaccompanied. Ulcerative Colitis I had the pleasure of seeing Yari Alcala today in Pediatric Gastroenterology and [facility] for follow up for UC. Diagnosed at [...] to next dose. Follow up in 3 months.[facility] Vital Signs Date TimeVital SignValuePerforming BqrcggcfhJripjwgv45-14-6204 09:57-0400Body mass index (BMI) [Ratio]22.33 kg/a0ZfbudMontefiore Health System10-17-2025 09:57-0400 Body .26 kgMontefiore Health System10-17-2025 09:57-0400Diastolic blood vadjjnwn46 mm[Hg][facility]10-17-2025 09:57-0400Systolic blood wpuxbtpm453 mm[Hg][facility]06-03-2025 16:13-0400Body .88 cmGloria [employer] Work Phone: [phone] [place], [place] 7374306-03-2025 16:13-0400 Body mass index (BMI) [Ratio]22.5 kg/w7Gxvrru [employer] Work Phone: [phone])[address] [place], [place] 7374306-03-2025 16:13-0400 Body tgpavywwzyy69.4 [degF][facility] DO Work Phone: [phone] [place], [place] 7374306-03-2025 16:13-0400 Body uemwoz15.46 kgGloria Nursing [facility] DO Work Phone: [phone])[address] [place], [place] 7374306-03-2025 16:13-0400 Diastolic blood tvoiihur90 mm[Hg][facility] DO Work Phone: 1(138)[address] [place], [place] 7[address]306-03-2025 16:13-0400 Heart rate63 /minGloria Nursing [facility] DO Work Phone: [phone] [place], [place] [address]6-03-2025 16:13-0400 Respiratory rate14 /minGloria [facility] DO Work Phone: [phone] [place], [place] [address]6-03-2025 16:13-0400 SaO2% (BldA) [Mass fraction]99 %[facility] DO Work Phone: [phone])[address] [place], [place] 7[address]306-03-2025 16:13-0400 Systolic blood zdaegzjm419 mm[Hg][facility] DO Work Phone: [facility]05-01-2025 13:10-0400 Body yldmlb879.88 cmMemorial Health System [facility]05-01-2025 13:10-0400Body mass index (BMI) [Ratio]22.8 kg/l8RrnbscoudMemorial Health System [facility]05-01-2025 13:10-0400Body .3 kgMemorial Health [facility]05-01-2025 13:10-0400Diastolic blood jifpypjz97 mm[Hg][facility] 09-28-2024 13:10-0400Systolic blood vqvoobpd737 mm[Hg][facility]05-01-2025 10:47-0400Body iqbrfr451.88 cmMemorial Health [facility]05-01-2025 10:47-0400Body mass index (BMI) [Ratio]22.9 kg/p2YyiaiqxojMemorial Health System [facility]05-01-2025 10:47-0400Body fdgtjy25.68 kgMemorial Health [facility]05-01-2025 10:47-0400Diastolic blood wuntxoor72 mm[Hg] [facility]05-01-2025 10:47-0400Heart rate62 /[facility]05-01-2025 10:47-0400Respiratory rate18 /[facility]05-01-2025 10:47-3005WdI8% (BldA) [Mass fraction]98 % [facility]05-01-2025 10:47-0400Systolic blood gtxcalpm53 mm[Hg][facility]11-18-2024 13:14-0500Body ytyevk011.88 cm Addie Giovani DO Work Phone: [facility]11-18-2024 13:14-0500 Body mass index (BMI) [Ratio]22.4 kg/b8Xwkgxa Matute DO Work Phone: [facility]11-18-2024 13:14-0500 Body abqskj50.84 kgGloria Matute DO Work Phone: [facility]05-31-2023 10:26-0400 Diastolic blood wtasppdq75 mm[Hg]DO Addie Matute Work Phone: [phone])[address] [place], [place] [address]305-31-2023 10:26-0400 Heart rate73 /Ronnell Matute Work Phone: 1(680)[address] [place], [place] [address]305-31-2023 10:26-0400 Respiratory rate16 /minDDamian Matute Work Phone: [phone])[address] [place], [place] [address]305-31-2023 10:26-0400 SaO2% (BldA) [Mass fraction]100 %DO Addie Matute Work Phone: [phone])[address] [place], [place] 7[address]305-31-2023 10:26-0400 Systolic blood voaxokdn436 mm[Hg]DO Addie Matute Work Phone: [phone])[address] [place], [place] 7[address]305-31-2023 08:39-0400 Body jotflo472.88 cmDO Addie Matute Work Phone: [phone])[address] [place], [place] 7[address]305-31-2023 08:39-0400 Body astfejgjchh97 [degF]DO Addie Matute Work Phone: [phone])[address] [place], [place] [address]305-31-2023 08:39-0400 Body .92 kgDO Addie Matute Work Phone: [phone] [place], [place] [address]305-03-2023 16:30-0400 Body .88 cmAddie Matute Other Marco [employer] Other 05-03-2023 16:30-0400Body mass index (BMI) [Ratio] 23.77 kg/a5UjnfikAddie Matute Other [employer] Other 05-03-2023 16:30-0400Body yepmvy15.52 kgAddie Matute Other [employer] Other 05-03-2023 16:30-0400Diastolic blood belpkyzj20 mm[Hg] Addie Giovani Other [employer] Other 05-03-2023 16:30-0400Respiratory rate18 /minGllasha Matute Other [employer] [facility] Other 05-03-2023 16:30-5419WyD6% (BldA) [Mass fraction]98 % Addie Matute Other [employer] Other 05-03-2023 16:30-0400Systolic blood xubnhxri955 mm[Hg] Addievinay Matute Other [employer] Other [id number] 16:15-0500Body .88 cmGllasha Matute Other [employer] Other 02-21-2023 16:15-0500Body mass index (BMI) [Ratio] 24.21 kg/m2Czlyrplasha Matute Other [employer] Other 02-21-2023 16:15-0500Body dwxfsyanvxs13.9 [degF]Addie Matute Other [employer] Other [id number] 16:15-0500Body ksyxqs09.97 kgGllasha Matute Other Marco Vasco Other 03-64988015-43-3095 16:15-0500Diastolic blood mm[Hg] Addie Giovani Other [employer] Other 02-21-2023 16:15-9068ZjB1% (BldA) [Mass fraction]99 % Addie Matute Other [employer] Other 02-21-2023 16:15-0500Systolic blood qqwimxor821 mm[Hg] Addie Matute Other [employer] Other 01-24-2022 08:45-0500Body .88 cmShoaib Kaur Other [employer] Other 01-24-2022 08:45-0500Body mass index (BMI) [Ratio] 21.83 kg/n3AggrwShoaib Kaur Other [employer] Other 01-24-2022 08:45-0500Body .03 kgShoaib Kaur Other [facility] Other 01-24-2022 08:45-0500Diastolic blood ibkeuovk41 mm[Hg] Shoaib Kaur Other [employer] Other 01-24-2022 08:45-0500Respiratory rate18 /minShoaib Kaur Other [facility] Other 01-24-2022 08:45-7059SqU7% (BldA) [Mass fraction]98 % Shoaib Kaur Other [employer] Other 01-24-2022 08:45-0500Systolic blood odsyvghc564 mm[Hg] Shoaib Kaur Other [employer] Other 11-24-2021 11:15-0500Body ykmtlw936.88 cmShoaib Kaur Other [employer] Other 11-24-2021 11:15-0500Body mass index (BMI) [Ratio] 21.25 kg/a6VltjcShoaib Kaur Other [employer] Other 11-24-2021 11:15-0500Body vycgkk05.08 kgShoaib Kaur Other [employer] Other 11-24-2021 11:15-0500Diastolic blood kmvojimv10 mm[Hg] Shoaib Kaur Other [employer] Other 11-24-2021 11:15-0500Respiratory rate18 /minShoaib Kaur Other [employer] Other 11-24-2021 11:15-9800WtV9% (BldA) [Mass fraction]98 % Shoaib Kaur Other [employer] Other 11-24-2021 11:15-0500Systolic blood diytorwl230 mm[Hg] Shoaib Kaur Other [employer] Other 07-26-2019 19:29-0400Body Nrknggidrpx28.5 [degF] [facility] Work Phone: 1(204) 629-940007-26-2019 19:29-0400BP Pkjaczdok10 mm[Hg][facility] Work Phone: 1(794) 465-967107-26-2019 19:29-0400BP Kjnsgjip905 mm[Hg][facility] Work Phone: 1(911) 673-590407-26-2019 19:29-0400Pulse (Heart Rate)86 /min [facility] [employer] Work Phone: 1(721) 422-679807-26-2019 19:29-0400Pulse Aylgtxes45 %[facility] Work Phone: 1(607) 388-671107-26-2019 19:29-0400Respiratory Rate16 /minSTorrance State Hospital Corporate Work Phone: 1(970) 190-881207-26-2019 19:29-89132 [facility] Work Phone: Comment on above:Pain Scale Encounters Encounter DateEncounter TypeCare ProviderFacilityStart: 03-16-2025 End: 70-80-2418Wcwxbi outpatient visit 5 minutesFazio Nurse Noms Bcp ObNOMS [place] OBGYNComment on above:[place]: 30h2pLdhjc: 03-16-2025 End: 45-82-6419verctdjwukUqy AvailableStart: 02-13-2025 End: 46-47-2020Pmmtxuv encounter procedureGloria A Matute DO-Lab [address] Work Phone: Start: 02-13-2025 End: 00-26-4865ecvhkvatmvZxtehj A Matute DO Work Phone: [facility] Work Phone: Start: 10-31-2024 End: 93-32-4922jtbfxvuuizWwujyt A Matute DO Work Phone: [facility] Work Phone: Start: 10-31-2024 End: 99-28-6113Mvgxyoo encounter procedureGloria Matute DO Work Phone: [facility] Work Phone: Start: 10-19-2024 End: 61-36-3366Blqfzwn encounter procedureGloria Matute DO Work Phone: [facility] [place] Work Phone: Start: 10-19-2024 End: 45-22-9727idwmawnbipQbpggf A Matute DO Work Phone: [facility] Work Phone: Start: 09-28-2024 End: 87-22-4568qvshtuaqquUervtdtsa [facility] Work Phone: Start: 09-28-2024 End: 29-88-2935Gfezjrd encounter procedureW[facility] GroupMiss[facility] Work Phone: Start: 67-27-6303Tjkwkrlu examinationGenesis Hospitaltart: 09-28-2024 End: 69-60-8006rznqwumizlMuvinrwin Regional Med Center Work Phone: Start: 09-28-2024 End: 69-33-1504Kvgbvgzwl for general adult medical examination without abnormal findingsGenesis Hospitaltart: 09-28-2024 End: 98-28-7134Gubccjo encounter procedureW[facility] [place] Work Phone: Start: 17-77-3351Flm-patient / Non-visitFirinova health system Physician [facility] Work Phone: Start: 05-17-2024 End: 20-10-7991knnmfxxewuYzgywnput L LyFacility:[facility] Hospitaltart: 05-04-2024 End: 26-65-3058gwsmsawnjwLwhfyzeje L LyFacility:[facility] Hospitaltart: 05-03-2024 End: 21-03-0636dotfsvkevgXrwvqmplc L LyFacility:[facility] Hospitaltart: 04-17-2024 End: 40-93-9258tcxcfmrpzvJeahrx A Matute DO Work Phone: [facility] Work Phone: Start: 04-17-2024 End: 22-97-0791Rqdguie encounter procedureGloria Matute DO Work Phone: [facility] [place] Work Phone: Start: 12-28-2022 End: 92-66-5648htfwoxoxusIrjz Ion Other [employer] [facility] Other Start: 41-22-4675Qumhljhwt by computer linkRachel Lemon [facility]PG GastroenterologyStart: 10-28-2022 End: 76-41-7873Iifanovme to same day surgery centerDO Addie Giovani Work Phone: [facility] Work Phone: Start: 10-28-2022 End: 37-38-8696mhcvgamlwiZM Addie Fields Matute Work Phone: [facility] Work Phone: Start: 10-06-2022 End: 52-61-2750Msxdnxh encounter procedureDO Addie Giovani Work Phone: [facility] [place] Work Phone: Start: 09-30-2022 End: 97-24-9829Erwlzzkk ReferredDO Addie Giovani Work Phone: [facility] [place] Work Phone: Start: 09-30-2022 End: 11-04-2769drbevweddqXB Gloria Matute Work Phone: [facility] Work Phone: Start: 29-98-9677Vgpkzi outpatient visit 15 minutes Addie [facility] [place]: 09-10-2022 End: 73-12-8774vqspagipcwHlsz Ion Other [facility] Other Start: 00-42-5979Dotwouenv encounterImad Javier GastroenterologyStart: 07-21-2022 End: 42-38-6592mbksyztclmSlnfem Matute Other Marco [facility]co Other Start: 91-54-6321Ojimkz outpatient visit 25 minutes Addievinay MatuteBARROW [facility]UR[facility] [place]Start: 07-16-2022 End: 21-42-8271tfqfxaouejZbhqes Matute Other [employer] Other Start: 43-15-6977Elvmyywdr encounterGloria JohnsBARROW NEUROLOGICAL INSTITUTE [facility] Medicine [place]Start: 11-06-2021 End: 47-16-3450iulciabjztVqctg Hykes Other Marco [facility] Other Start: 93-89-7031Kltpjfwjz encounterDavid HykesFPG GastroenterologyStart: 15-01-2090rfpkrzaxcqTAFVY L HYKES JRFacility:S6Aqmqg: 09-02-2021 End: 62-89-7074cnjbvotpxjBzvel Carnahan Other [facility] Other Start: 88-13-3195Amrivesns encounterKevin McL[facility] [place]Start: 09-01-2021 End: 84-47-7164istevbkofrLkcce Natasha Other [place] [facility] Other Start: 91-24-0369Cfobhsuly encounterKevin McLaren [facility] [place]kyStart: 08-12-2021 End: 57-60-5215ecxslpuljeKycku Hykes Other [facility] Other Start: 63-45-0105Akocnrlcq encounterDavid HykesFPG GastroenterologyStart: 06-23-2021(Procedure) ShortKevin McLaren [facility] [place]kyStart: 06-23-2021 End: 52-60-3119gykfkubjcbTakjr Natasha Other Marco [facility] Other Start: 05-26-2021 End: 25-29-4199wwqajpyvjuNtoul Carnahan Other [employer] Other Start: 76-25-2578Vkuyanpsr encounterShoaib [facility] CareStart: 05-08-2021 End: 88-40-8291tyjknohvnyCipca Carnahan Other [employer] Other Start: 25-40-9960Xwywwudzp encounterShoaib KaurMercy Medical CenteryStart: 05-06-2021 End: 50-81-4470ervorowovlGjyna Carnahan Other [employer] Other Start: 92-04-7045Dwcvagquq encounterShoaib KaurMercy Medical CenteryStart: 04-23-2021 End: 57-32-1979obvpgcqjjaWngmf Carnahan Other [employer] Other Start: 46-58-3898Qznqkl outpatient visit 25 minutes Shoaib BuddytomásBARROW NEUROLOGICAL INSTITUTE Family Medicine [place] HealthyStart: 04-08-2021 End: 45-71-4811goahrkhqidHD DOCTOR MISCFacility:Q2Rzwuh: 09-19-2020 End: 36-90-1925gjkxtlccyzDV NONE LISTED REQUESTFacility:E9Adxmp: 03-16-2020 End: 72-12-5147GhcacvRkmbdvx Alexander (Regulatory Affairs Portfolio Leader Denitrator) Madej Work Phone: ppg [facility] River OaksComment on above:Refill Request Procedures DateProcedureProcedure DetailPerforming ClinicianStart: 69-79-1384Wlrxu dip stick/tablet rgnt non-auto w/o micrscpCorey Isabel DO Work Phone: Start: 58-07-1494QvnimzzqzegDV Addie Matute Work Phone: Start: 15-98-1621Dituzv-up visit Plan of Treatment DateCare ActivityDetailAuthorStart: 48-31-0538Cgebw microalbumin profile DTAP,TDAP,TD (8 - Td)[facility]: 04-10-2025 End: 77-06-9711Qfjlrvr encounter qbudierkv37/11/2025 1:40 PM EST Routine [facility] [address] [place], [id number] Pablo Hall DO [address] [place] [address] [facility] OBGYNStart: 03-16-2025 End: 35-89-1647TNU/RhABO/Rh Lab Routine Missed menses , unspecified gestational age ([facility]) Expected: 03/16/2025 (Approximate), Expires: 03/16/2026[facility] HealthcareComment on above:Expected: 03/16/2025 (Approximate), Expires: 03/16/2026Start: 03-16-2025 End: 29-63-2265Ztrun type and Indirect antibody screen panel - BloodType and screen Lab Routine Missed menses , unspecified gestational age ([facility]) Expected: 03/16/2025 (Approximate), Expires: 03/16/2026[facility] Comment on above:Expected: 03/16/2025 (Approximate), Expires: 03/16/2026Start: 03-16-2025 End: 30-24-1411Tcgza of abuse panel - Urine by Screen methodRapid drug screen, urine Lab Routine , unspecified gestational age ([facility]) Encounter for supervision of normal first in first trimester ([facility]) Expected: 03/16/2025 (Approximate), Expires: 03/16/2026[facility] HealthcareComment on above: Expected: 03/16/2025 (Approximate), Expires: 03/16/2026Start: 03-06-2025 End: 02-03-2484LZ Pelvis transvaginalUS OB transvaginal Imaging Routine Missed menses Positive urine test ([facility]) Expected: 03/06/2025, Expires: 06/06/2025[facility] Healthcare Work Phone: comment on above:Expected: 03/06/2025, Expires: 06/06/2025Start: 68-50-0214LgpvdscuyGenesis Hospitaltart: 04-17-2024 Hepatitis B core antibody measurementGenesis Hospitaltart: 80-29-4030Lfjujnxbn B virus surface Ab [Presence] in SerumGenesis Hospitaltart: 28-83-5401ZskwbymmkGenesis Hospitaltart: 23-05-0987WzfsapdbeGenesis Hospitaltart: 95-37-0941Allkjmwxq vaccinationINFLUENZA (#1)[facility] Centertart: 22-93-0203NIX TESTINGPAP TESTING [facility] Centertart: 43-58-0803HTOCVJAHI SCREENING (18-24)CHLAMYDIA SCREENING (18-24)[facility] Centertart: 82-39-3431TJ (GONORRHEA) SCREENING (18-24)GC (GONORRHEA) SCREENING (18-24)[facility] Centertart: 78-57-1581LGINEBJNQ C SCREENINGHEPATITIS C SCREENINGUniversity Hospitals Conneaut Medical Centertart: 84-26-6741DYV SCREENINGHIV SCREENINGAvita Health System Ontario HospitalBacteria identified in Urine by CultureUrine culture Microbiology Routine Missed menses Ordered: 03/16/2025[facility] HospitalComment on above:Ordered: 03/16/2025BC W Auto Differential panel - BloodCBC and differential Lab Routine Missed menses , unspecified gestational age ([facility]) Ordered: 03/16/2025[facility] HospitalComment on above:Ordered: 03/16/2025 Chlamydia trachomatis DNA [Presence] in Unspecified specimen by JOANNE with probe detectionMemorial Health System Marietta Memorial HospitalHemoglobin A1c/Hemoglobin.total in BloodHemoglobin A1c Lab Routine Missed menses , unspecified gestational age ([facility]) Ordered: 03/16/2025[facility] HospitalComment on above:Ordered: 03/16/2025Hepatitis B virus surface Ag [Presence] in Serum or Plasma by ImmunoassayMemorial Health System Marietta Memorial HospitalHepatitis B virus surface Ag [Presence] in Serum or Plasma by ImmunoassayHepatitis B surface antigen Lab Routine Missed menses , unspecified gestational age ([facility] Ordered: 03/16/2025[facility] HealthcareComment on above:Ordered: 03/16/2025Hepatitis C virus Ab [Presence] in Serum or Plasma by ImmunoassayHepatitis C antibody Lab Routine Missed menses , unspecified gestational age ([facility]) Ordered: 03/16/2025[facility] HealthcareComment on above:Ordered: 03/16/2025HIV-1/HIV-2 antigen/antibody combination immunoassayHIV-1 and HIV-2 antibodies Lab Routine Missed menses , unspecified gestational age ([facility]) Ordered: 03/16/2025[facility] HealthcareComment on above:Ordered: 03/16/2025Interferon gamma assayMemorial Health System Marietta Memorial HospitalMycobacterium tuberculosis stimulated gamma interferon [Interpretation] in Blood QualitativeMemorial Health System Marietta Memorial HospitalMycobacterium tuberculosis stimulated gamma interferon release by CD4+ and CD8+ T-cells [Units/volume] corrected for background in BloodMemorial Health System Marietta Memorial HospitalMycobacterium tuberculosis tuberculin stimulated gamma interferon [Presence] in BloodMemorial Health System Marietta Memorial HospitalNeisseria gonorrhoeae DNA [Presence] in Unspecified specimen by JOANNE with probe detection [facility] HospitalPatient EducationHemorrhoids (DC)[facility] Work Phone: Reagin Ab [Presence] in Serum by RPRRPR Lab Routine Missed menses , unspecified gestational age ([facility]) Ordered: 03/16/2025[facility] HealthcareComment on above:Ordered: 03/16/2025Rubella antibody, IgGRubella antibody, IgG Lab Routine Missed menses , unspecified gestational age ([facility]) Ordered: 03/16/2025[facility] HealthcareComment on above: Ordered: 03/16/2025Trichomonas vaginalis DNA [Presence] in Unspecified specimen by JOANNE with probe detectionMemorial Health System Marietta Memorial HospitalUS Pelvis transvaginalUS OB transvaginal Imaging Routine Missed menses Positive urine test ([facility] 59:00 [facility] Immunizations Immunization DateImmunizationNotesCare [id number]-90 Vaccine Pfizer - Documentation Purposes OnlyGllasha Matute Other [facility]01-03-2022influenza, injectable, quadrivalent, preservative freeOsceola Regional [facility] Center Other [facility]04-22-2021Do not use COVID-19 Pfizer 2 dosejosi Goodwinahan Other [facility]04-02-2021COVID-19 Pfizerjosi [facility] Other [facility]09-09-2019tetanus toxoid, reduced diphtheria toxoid, and acellular pertussis vaccine, adsorbed [facility]10-09-2018Influenza, injectable, [facility], preservative free, quadrivalentMercy San Juan Medical Centerhael [facility]01-05-2018influenza, injectable, quadrivalent, contains preservativeMichael [facility]08-25-2016 meningococcal oligosaccharide (groups A, C, Y and W-135) diphtheria toxoid conjugate vaccine (MCV4O)[facility]08-25-2016meningococcal polysaccharide (groups A, C, Y and W-135) diphtheria toxoid conjugate vaccine (MCV4P)[facility]11-09-2015influenza, injectable, quadrivalent, preservative freeMichael [facility]03-15-2011human papilloma virus vaccine, quadrivalentMichael [facility]09-01-2010human papilloma virus vaccine, quadrivalentMichael [facility]06-30-2010human papilloma virus vaccine, quadrivalentCuster Regional Hospitall [facility]06-30-2010meningococcal polysaccharide (groups A, C, Y and W-135) diphtheria toxoid conjugate vaccine (MCV4P)[facility]06-30-2010tetanus toxoid, reduced diphtheria toxoid, and acellular pertussis vaccine, adsorbedMichaeSaint Louis [facility] 71-58-2063spxrt Awdbmnwrm-F2J2-61, live virus for nasal administrationCuster Regional Hospitall [facility]04-17-2007varicella virus vaccineMemorial Hospital04-01-2002diphtheria, tetanus toxoids and acellular pertussis vaccineProMedica Memorial Hospital04-01-2002diphtheria, tetanus toxoids and acellular pertussis vaccine, unspecified formulationMemorial Hospital04-01-2002measles, mumps and rubella virus vaccineMemorial Hospital04-01-2002poliovirus vaccine, inactivatedMemorial Hospital07-05-1999 diphtheria, tetanus toxoids and acellular pertussis vaccineMary [facility]07-05-1999diphtheria, tetanus toxoids and acellular pertussis vaccine, unspecified formulationMemorial Hospital 92-81-4841falovaami virus vaccineMemorial Hospital 24-50-7468dmpnteriwcz influenzae type b conjugate and Hepatitis B vaccineMemorial Hospital04-06-1999measles, mumps and rubella virus vaccineMemorial Hospital04-06-1999trivalent poliovirus vaccine, live, oralMicBlanchard Valley Health System [facility] 98-94-2572ienamhpwwq, tetanus toxoids and acellular pertussis vaccineProMedica Memorial Hospital09-30-1998diphtheria, tetanus toxoids and acellular pertussis vaccine, unspecified formulationMemorial Hospital07-27-1998diphtheria, tetanus toxoids and acellular pertussis vaccineProMedica Memorial Hospital07-27-1998diphtheria, tetanus toxoids and acellular pertussis vaccine, unspecified formulationMemorial Hospital07-27-1998haemophilus influenzae type b conjugate and Hepatitis B vaccineMemorial Hospital07-27-1998 poliovirus vaccine, inactivatedMemorial Hospital 78-53-5737moeivothbd, tetanus toxoids and acellular pertussis vaccineMicSelect [facility]06-01-1998diphtheria, tetanus toxoids and acellular pertussis vaccine, unspecified formulationMicBlanchard Valley Health System [facility]06-01-1998haemophilus influenzae type b conjugate and Hepatitis B vaccineMicBlanchard Valley Health System [facility]06-01-1998poliovirus vaccine, inactivatedMicBlanchard Valley Health System Blanchard Valley HospitalNEGATED: Highlighted row has not occurred!45-13-0149vnyxasnoc, seasonal, injectable Patient ObjectionGloria Matute Other [facility] Payers DatePayer CategoryPayerPolicy [id number] Health InsuranceMEDICAL MUTUAL [id number] BLUE CARD PPO [id number] 2013-Present [id number] [id number]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
--- OUTSIDE RECORDS SUMMARY | 2025-04-10 19:35 | XMS_ITS | Encounter Summary ---
Author Organization [facility] Address [address] [place] [address] Care Team Providers Care Mixer Slagman Name Role Phone Addie Matute DO Primary Care Provider Encounter Details DateTypeDepartmentCare Team (Latest Contact Info)Kdiluacchqe01/17/2025linisync Result Encounter [facility] Unsolicited Pablo Hall DO [address] [place], [place] [id number] Social History Tobacco UseTypesPacks/DayYears UsedDateSmoking Tobacco: NeverAlcohol UseStandard Drinks/WeekCommentsYes6 (1 standard drink = 0.6 oz pure alcohol) Estimated Date of PdawrgjpBaiynngrIgc03/18/2026Based on UltrasoundSex and Gender InformationValueDate RecordedSex Assigned at BirthNot on fileLegal SexFemale 08/12/2022 9:55 PM EDTGender IdentityNot on fileSexual OrientationNot on file documented as of this encounter Plan of Treatment DateTypeDepartmentCare Team (Latest Contact Info)Rtywgkkoajl45/02/2025 2:30 PM ESTAncillary Procedure [facility] [address] [place] [address] 05/09/2025 11:20 [place] [address] Pablo Hall, DO [address] [place] [address] [place] [address] documented as of this encounter Procedures Procedure NamePriorityDate/TimeAssociated DiagnosisCommentsHBSAG SCREENRoutine 03/16/2025 10:31 AM EDT RAPID PLASMA REAGIN, UXWZJLeviduz76/17/2025 10:31 AM EDT HIV AB/P24 AG WITH KOUVASEqaypjg42/17/2025 10:31 AM EDT HCV ANTIBODY RFX TO QUANT ADBXroepbp68/17/2025 10:31 AM EDT MLR HEMOGLOBIN A3ONgadtva28/17/2025 10:31 AM EDT ALL TYPE AND QUPIZHOvwuhtd87/17/2025 10:31 AM EDT ALL RUBELLA IGG EIAvkmogn43/17/2025 10:31 AM EDT ALL CBC WITH AUTO KEECCbpbzfw23/17/2025 10:31 AM EDT [facility] DRUG SCREEN RAPID (URINE)Uoztelp5203/16/2025 10:22 AM EDT documented in this encounter Results * HCV ANTIBODY RFX TO QUANT PCR (03/16/2025 10:31 AM EDT)ComponentValueRef Range Test MethodAnalysis TimePerformed AtPathologist SignatureHCV ABNon ReactiveNon ReactiveTBHINTERPRETATION:Comment.TBHComment: Not infected with HCV unless early or acute infection is suspected (which may be delayed in an immunocompromised individual), or other evidence exists to indicate HCV infection. Performed at: ??[facility] [address] ??[id number] Advertising Agent: Jefferson Evangelista PhD, Phone: ??[phone] Specimen (Source)Anatomical Location / LateralityCollection Method / Volume Collection TimeReceived Time03/16/2025 10:31 AM EDT1 10:36 AM EDT Narrative [facility] - 03/17/2025 7:13 AM EDT Authorizing ProviderResult TypeResult StatusCorey Isabel DOLAB BLOOD ORDERABLES Final ResultPerforming OrganizationAddressCity/State/ZIP CodePhone Number [facility] [place] * (ABNORMAL) ALL RUBELLA IGG AB (03/16/2025 10:31 AM EDT)ComponentValueRef Range Test MethodAnalysis TimePerformed AtPathologist SignatureRUBELLA ANTIBODIES, IGG<0.90(A)Immune >0.99 indexTBHComment: Non-immune <0.90 ?Equivocal ??0.90 - 0.99 Immune >0.99 Performed at: ??[facility] ??[id number] Advertising Agent: Jefferson Evangelista PhD, Phone: ??[phone] Specimen (Source)Anatomical Location / LateralityCollection Method / Volume Collection TimeReceived Time03/16/2025 10:31 AM EDT1 10:36 AM EDT Narrative [facility] - 03/17/2025 7:13 AM EDT Authorizing ProviderResult TypeResult StatusCorey Isabel DOCLINISYNCFinal Result Performing OrganizationAddressCity/State/ZIP CodePhone Number [facility] * HBSAG SCREEN (03/16/2025 10:31 AM EDT)ComponentValueRef RangeTest Method Analysis TimePerformed AtPathologist SignatureHBSAG SCREENNegativeNegativeTBH Comment: Performed at: ??[address] ??[id number] Advertising Agent: Jefferson Evangelista PhD, Phone: ??[phone] Specimen (Source)Anatomical Location / LateralityCollection Method / Volume Collection TimeReceived Time03/16/2025 10:31 AM EDT1 10:36 AM EDT Narrative [facility] - 03/17/2025 11:08 AM EDT Authorizing ProviderResult TypeResult StatusCorey Isabel DOLAB BLOOD ORDERABLES Final ResultPerforming OrganizationAddressCity/State/ZIP CodePhone Number [facility] * RAPID PLASMA REAGIN, QUANT (03/16/2025 10:31 [...] utilized, such as Treponema pallidum (Syphilis) Screening Lostant (015580) or Rapid Plasma Reagin (RPR) Test With Reflex to Quantitative RPR and Confirmatory Treponema pallidum Antibodies (811338). Performed at: ??[facility] ??[id number] Advertising Agent: Jefferson Evangelista PhD, Phone: ??[phone] Specimen (Source)Anatomical Location / LateralityCollection Method / Volume Collection TimeReceived Time03/16/2025 10:31 AM EDT1 10:36 AM EDT Narrative FR[facility]CO[facility] - 03/17/2025 11:08 AM EDT Authorizing ProviderResult TypeResult StatusCorey Isabel DOLAB BLOOD ORDERABLES Final ResultPerforming OrganizationAddressCity/State/ZIP CodePhone Number [facility] * HIV AB/P24 AG WITH REFLEX (03/16/2025 10:31 AM EDT)ComponentValueRef RangeTest MethodAnalysis TimePerformed AtPathologist SignatureHIV AB/P24 AG SCREENNon ReactiveNon ReactiveTBHComment: HIV-1/HIV-2 antibodies and HIV-1 p24 antigen were NOT detected. There is no laboratory evidence of HIV infection. HIV Negative Performed at: ??[facility] ??[id number] Advertising Agent: Jefferson Evangelista PhD, Phone: ??[phone] Specimen (Source)Anatomical Location / LateralityCollection Method / Volume Collection TimeReceived Time03/16/2025 10:31 AM EDT1 10:36 AM EDT Narrative [facility] - 03/17/2025 5:07 AM EDT Authorizing ProviderResult TypeResult StatusCorey Isabel ESCALERA BLOOD ORDERABLES Final ResultPerforming OrganizationAddressCity/State/ZIP CodePhone Number [facility] * MLR HEMOGLOBIN A1C (03/16/2025 10:31 AM EDT)ComponentValueRef RangeTest Method Analysis TimePerformed AtPathologist SignatureGLYCOHEMOGLOBIN A1C5.04.5 - 6.2 %TBHComment: ADA RECOMMENDED LIMIT 4.0 - 6.0 ADA THERAPEUTIC TARGET < 7.0 ACTION SUGGESTED > 7.0 ESTIMATED AVERAGE VDIVNBQ61px/dLTBHSpecimen (Source)Anatomical Location / LateralityCollection Method / VolumeCollection TimeReceived Time03/16/2025 10:31 AM EDT1 10:36 AM EDT Narrative [facility] - 03/16/2025 3:21 PM EDT Authorizing ProviderResult TypeResult StatusCorey Isabel DOCLINISYNCFinal Result Performing OrganizationAddressCity/State/ZIP CodePhone Number [facility] * ALL TYPE AND SCREEN (03/16/2025 10:31 AM EDT)ComponentValueRef RangeTest MethodAnalysis TimePerformed AtPathologist SignatureBLOOD TYPEA PositiveTBH ANTIBODY SCREENNEGATIVETBHSpecimen (Source)Anatomical Location / Laterality Collection Method / VolumeCollection TimeReceived Time03/16/2025 10:31 AM EDT 03/16/2025 10:36 AM EDT Narrative [facility] - 03/16/2025 2:50 PM EDT [facility] , Authorizing ProviderResult TypeResult StatusCorey Isabel DOCLINISYNCFinal Result Performing OrganizationAddLatrobe Hospitalty/State/ZIP CodePhone Number [facility] * (ABNORMAL) ALL CBC WITH AUTO DIFF (03/16/2025 10:31 AM EDT)ComponentValueRef RangeTest MethodAnalysis TimePerformed AtPathologist SignatureTBH WBC6.94.0 - 11.0 10 3/uLTBHTBH RBC4.19(L)4.20 - 5.40 10 6/uLTBHTBH HGB12.612.0 - 16.0 g/dL TBHTBH HCT36.936.0 - 48.0 %TBHTBH MCV88.181.0 - 99.0 fLTBHTBH MCH30.126.7 - 34.0 pgTBHTBH MCHC34.129.9 - 35.2 g/dLTBHTBH RDW12.311.0 - 15.0 %TBHTBH NCV213 150 - 450 10 3/uLTBHTBH MPV8.9(L)9.5 - [...] DOCLINISYNCFinal Result Performing OrganizationAddressCity/State/ZIP CodePhone Number [facility] * [facility] DRUG SCREEN RAPID (URINE) (03/16/2025 10:22 AM [...] 10:22 AM EDT1 10:36 AM EDT Narrative [facility] - 03/16/2025 11:39 AM EDT Authorizing ProviderResult TypeResult StatusCorey Isabel DOCLINISYNCFinal Result Performing OrganizationAddressCity/State/ZIP CodePhone Number [facility] documented in this encounter Visit Diagnoses Not on filedocumented in this encounter Care Teams Team MemberRelationshipSpecialtyStart DateEnd Date Addie Matute DO [address] [facility] [address] PCP - GeneralFamily Vzcckqib88/17/25documented as of this encounter
--- OUTSIDE RECORDS SUMMARY | 2025-04-10 19:35 | XMS_ITS | Encounter Summary ---
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 Role Phone Addie Matute DO Primary Care Provider [phone] Encounter Details DateTypeDepartmentCare Team (Latest Contact Info)Wyskbrfqgfo03/11/2025Bamboo flowsheet [address] [place] [address] Pablo Hall DO [address] [place], [place] [id number] Social History Tobacco UseTypesPacks/DayYears UsedDateSmoking Tobacco: NeverAlcohol UseStandard Drinks/WeekCommentsYes6 (1 standard drink = 0.6 oz pure alcohol) Estimated Date of RlszxsmlMmziwwcoRdt08/18/2026ased on UltrasoundSex and Gender InformationValueDate RecordedSex Assigned at BirthNot on fileLegal SexFemale 08/12/2022 9:55 PM EDTGender IdentityNot on fileSexual OrientationNot on file documented as of this encounter Plan of Treatment DateTypeDepartmentCare Team (Latest Contact Info)Lotqkocmdqp72/02/2025 2:30 PM [place]An[place]illary [place] [address] 05/09/2025 11:20 AM E[address]outine [place] [address] Pablo Hall DO [address] [facility] [place] [address] documented as of this encounter Visit Diagnoses Not on filedocumented in this encounter Care Teams Team MemberRelationshipSpecialtyStart DateEnd Date Addie Matute DO [address] [facility] [place] [address] PCP - GeneralFamily Ymtlgsav40/17/25documented as of this encounter
--- OUTSIDE RECORDS SUMMARY | 2025-04-10 19:35 | XMS_ITS | Encounter Summary ---
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 Name Role Phone Addie Matute DO Primary Care Provider [phone] Encounter Details DateTypeDepartmentCare Team (Latest Contact Info)Pcogoqweqsi73/11/2025bstract [address] [place] [address] Pablo Hall DO [address] [place], [place] [id number] Social History Tobacco UseTypesPacks/DayYears UsedDateSmoking Tobacco: NeverAlcohol UseStandard Drinks/WeekCommentsYes6 (1 standard drink = 0.6 oz pure alcohol) Estimated Date of DuyqamqeOgiclxhqQmb72/18/2026ased on UltrasoundSex and Gender InformationValueDate RecordedSex Assigned at BirthNot on fileLegal SexFemale 08/12/2022 9:55 PM EDTGender IdentityNot on fileSexual OrientationNot on file documented as of this encounter Plan of Treatment DateTypeDepartmentCare Team (Latest Contact Info)Mzwdqlhmhdk21/02/2025 2:30 PM [place]Ancillary [place] [address] 05/09/2025 11:20 AM [place] [address] Pablo Hall DO [address] [facility] [place] [address] documented as of this encounter Visit Diagnoses Not on filedocumented in this encounter Care Teams Team MemberRelationshipSpecialtyStart DateEnd Date Addie Matute DO [address] [facility] [place] [address] PCP - GeneralFamily Zgxoxamf14/17/25documented as of this encounter
[2025-04-12 16:09] LABS: Age Gdln ACOG Testing Note (.); IGP, rfx Aptima HPV ASCU Note (.)
== END 2025-04-10 19:32 | disposition home or self-care (01) ==
LOC: LAB 19:31
PROVIDERS: PCP Family Medicine; Visit Provider Obstetrics & Gynecology
DX: Z01.419 Encounter for gynecological examination (general) (routine) without abnormal findings (principal)
CPT/HCPCS: 88175